=== PATIENT | female | born 1955 | race Caucasian/White ===

== ENCOUNTER 2017-09-07 11:01 | Emergency (ER) | payer OTHER ==
[2017-09-07 11:32] LABS: BASOPHILS # (AUTO) 0.1 10^3/uL (0.0-0.1); BASOPHILS % (AUTO) 0.6 %; EOSINOPHILS # (AUTO) 0.1 10^3/uL (0.0-0.7); EOSINOPHILS % (AUTO) 1.2 %; HCT - HEMATOCRIT 42.8 % (37.0-47.0); HGB - HEMOGLOBIN 14.7 g/dL (12.0-16.0); LYMPHOCYTES % (AUTO) 24.4 %; MEAN CORPUSCULAR HEMOGLOBIN 29.5 pg (27.0-31.0); MEAN CORPUSCULAR HGB CONC 34.3 g/dL (32.0-36.0); MEAN PLATELET VOLUME 7.2 fL (7.9-10.8); MONOCYTES # (AUTO) 0.6 10^3/uL (0.0-1.0); MONOCYTES % (AUTO) 7.1 %; NEUTROPHILS # (AUTO) 5.5 10^3/uL (1.5-6.6); NEUTROPHILS % (AUTO) 66.7 %; RED BLOOD COUNT 4.98 10^6/uL (4.20-5.40); RED CELL DISTRIBUTION WIDTH 12.4 % (12.0-15.0); UNCORRECTED WHITE BLOOD COUNT 8.2 x10^3/uL; WHITE BLOOD COUNT 8.2 x10^3/uL (4.8-10.8)
[2017-09-07 11:44] LABS: ALBUMIN/GLOBULIN RATIO 1.5 (1.0-2.2); BILIRUBIN,TOTAL 0.5 mg/dL (0.2-1.0); CALCIUM 9.9 mg/dL (8.5-10.3); CREATININE 0.5 mg/dL (0.4-1.0); POTASSIUM 3.7 mmol/L (3.5-5.0); TOTAL PROTEIN 7.9 g/dL (6.7-8.2)
--- NOTE | 2017-09-07 11:47 | ED Physician Documentation ---
History of Present Illness - Stated complaint Stated Complaint: DIZZY, FAST HR - Chief complaint Chief Complaint: Cardiac - History obtained from History obtained from: Patient, Family - History of Present Illness Timing: Enter time (129) - Additonal information Additional information: 62-year-old female with a remote history of diverticulitis with abscess formation has developed a headache at 01 30 this morning that awoken her from sleep and was severe. She became nauseous diaphoretic and tachycardic associated with his headache. She felt that her blood pressure was markedly elevated. She did not check her blood pressure or pulse. She was eventually able to get back to sleep and when she awoke this morning she continued to have some dizziness and she went into go see her primary care doctor. She was sent to get blood work and she was asked to come to the emergency department if she developed dizziness in route to the hospital. The patient did develop the dizziness and has come to the emergency department Review of Systems Constitutional: reports: Myalgias, Fatigue. denies: Fever, Chills Ears: denies: Ear pain Nose: denies: Rhinorrhea / runny nose, Congestion Throat: denies: Dental pain / toothache, Sore throat Cardiac: reports: Palpitations. denies: Chest pain / pressure, Pedal edema, Calf pain Respiratory: reports: Dyspnea, Cough. denies: Wheezing GI: denies: Abdominal Pain, Nausea, Vomiting : denies: Dysuria, Frequency PD PAST MEDICAL HISTORY - Past Medical History GI: Diverticulitis - Present Medications Home Medications: Ambulatory Orders Medication Instructions Recorded Confirmed Estrogens,Conj.,Synthetic A 0.3 mg PO 05/26/13 05/26/13 [Cenestin] Hydromorphone HCl 2 mg PO Q4-6H PRN 05/26/13 05/26/13 Levofloxacin 750 mg PO DAILY 05/26/13 05/26/13 Metronidazole 500 mg PO TID 05/26/13 05/26/13 - Allergies Allergies/Adverse Reactions: Allergies Allergy/AdvReac Type Severity Reaction Status Date / Time Tetracyclines Allergy Dizziness Verified 05/26/13 08:27 - Social History Does the pt smoke?: No Smoking Status: Never smoker Does the pt drink ETOH?: Yes Does the pt have substance abuse?: No - POLST Patient has POLST: No PD ED PE NORMAL - Vitals Vital signs reviewed: Yes (tachy and hypertensive) - General General: No acute distress, Well developed/nourished - HEENT HEENT: Atraumatic, PERRL, EOMI, Ears normal, Moist mucous membranes, Pharynx benign, Dentition benign - Neck Neck: Supple, no meningeal sign, No bony TTP - Cardiac Cardiac: No murmur, Other (tachy with loud second sound ) - Respiratory Respiratory: No respiratory distress, Clear bilaterally - Abdomen Abdomen: Soft, Non tender - Back Back: No CVA TTP, No spinal TTP - Derm Derm: Normal color, Warm and dry, No rash - Extremities Extremities: No deformity, No edema - Neuro Neuro: No motor deficit, No sensory deficit - Psych Psych: Normal mood, Normal affect Results - Vitals Vitals: Vital Signs - 24 hr 09/07/17 09/07/17 09/07/17 11:05 11:30 13:03 Temperature 36.2 C L 36.8 C Heart Rate 118 H 118 H 99 Respiratory 20 16 12 Rate Blood Pressure 162/95 H 187/94 H 169/73 H O2 Saturation 100 97 98 09/07/17 09/07/17 09/07/17 13:41 14:20 14:21 Temperature Heart Rate 93 93 109 H Respiratory 14 15 15 Rate Blood Pressure 168/72 H 164/86 H 182/90 H O2 Saturation 100 99 99 09/07/17 09/07/17 15:55 16:03 Temperature 36.6 C Heart Rate 98 97 Respiratory 21 16 Rate Blood Pressure 174/84 H 160/70 H O2 Saturation 95 98 Oxygen O2 Source Room air - EKG (time done) 1114 Rate: Rate (enter#) (112) Rhythm: Sinus tachycardia, LAE QRS: Low voltage Ischemia: Q waves (inferior) Compare to prior EKG: Old EKG unavailable Computer interpretation: Agree with computer - Labs Labs: Laboratory Tests 09/07/17 09/07/17 09/07/17 11:25 11:25 11:25 WBC 8.2 RBC 4.98 Hgb 14.7 Hct 42.8 MCV 86.0 MCH 29.5 MCHC 34.3 RDW 12.4 Plt Count 288 MPV 7.2 L Neut # 5.5 Lymph # 2.0 [place] # 0.6 Eos # 0.1 Baso # 0.1 Absolute Nucleated RBC 0.00 Nucleated RBC % 0.0 D-Dimer Sodium 137 Potassium 3.7 Chloride 102 Carbon Dioxide 22 Anion Gap 13.0 BUN 11 Creatinine 0.5 Estimated GFR (MDRD) 125 Glucose 109 H Calcium 9.9 Total Bilirubin 0.5 AST 28 ALT 28 Alkaline Phosphatase 121 Troponin I < 0.04 Total Protein 7.9 Albumin 4.8 Globulin 3.1 Albumin/Globulin Ratio 1.5 Lipase 45 Urine Color Urine Clarity Urine pH Ur Specific [place] Urine Protein Urine Glucose (UA) Urine Ketones Urine Occult Blood Urine Nitrite Urine Bilirubin Urine Urobilinogen Ur Leukocyte Esterase Ur Microscopic Review Urine Culture Comments 09/07/17 09/07/17 11:25 12:00 WBC RBC Hgb Hct MCV MCH MCHC RDW Plt Count MPV Neut # Lymph # [place] # Eos # Baso # Absolute Nucleated RBC Nucleated RBC % D-Dimer < 200.0 L Sodium Potassium Chloride Carbon Dioxide Anion Gap BUN Creatinine Estimated GFR (MDRD) Glucose Calcium Total Bilirubin AST ALT Alkaline Phosphatase Troponin I Total Protein Albumin Globulin Albumin/Globulin Ratio Lipase Urine Color YELLOW Urine Clarity CLEAR Urine pH 6.0 Ur Specific [place] <=1.005 Urine Protein NEGATIVE Urine Glucose (UA) NEGATIVE Urine Ketones NEGATIVE Urine Occult Blood NEGATIVE Urine Nitrite NEGATIVE Urine Bilirubin NEGATIVE Urine Urobilinogen 0.2 (NORMAL) Ur Leukocyte Esterase NEGATIVE Ur Microscopic Review NOT INDICATED Urine Culture Comments NOT INDICATED - Rads (name of study) 2 veiw chest Radiology: Prelim report reviewed (Impression: No consolidation evident.), EMP read indepedently, See rad report Procedures - IVC sono (time) 1140 Bedside IVC sono: IVC measures (cm) (0.92), IVC collapsed c insp (cm) (complete) , Dehydration 1530 Bedside IVC sono: IVC measures (cm) (1.56), IVC collapsed c insp (cm) (1.24), Euvolemia PD MEDICAL DECISION MAKING - ED course Complexity details: reviewed old records, reviewed results, re-evaluated patient , considered differential, d/w patient, d/w family ED course: 62-year-old female with a concerning onset of severe headache and tachycardia with diaphoresis in the middle of the night has had improvement in her symptoms but continues to have some mild dizziness. She is found to be dehydrated on interrogation of the inferior vena cava. Her heart rate is in the 120 range and she is dehydrated. IV is established and she is given IV saline and we will check her troponin. Her electrocardiogram is concerning for some Q waves in the inferior leads. Troponin and d-dimer are negative the patient's blood work is otherwise unremarkable and she is able to orally hydrate. We were not able to establish an IV. Following hydration the patient's inferior vena cava is interrogated again showing normal indices for hydration. The patient is symptom-free. 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 This is the only risk for her being dehydrated we have come up with. The patient does have some exertional dyspnea which has been progressive and I have recommended she have an exercise treadmill test done as soon as possible. She also has some hypertension which has been untreated and all values here today were in an elevated range and I have asked her to repeat blood pressure measurements in an appropriate setting. I have asked her to follow-up with her primary care doctor regarding her blood pressure and treatment. Departure - Departure Disposition: 01 Home, Self Care Clinical Impression: Dehydration Hypertension Qualifiers: Hypertension type: unspecified Qualified Code(s): I10 - Essential (primary) hypertension Instructions: ED Dehydration, ED Hypertension Poss Follow-Up: Jannet Botello PA-C [Primary Care Provider] - Comments: Today in the Emergency Department your blood pressure was elevated. This can happen from the stress of the visit itself, from a current illness or circumstance or from uncontrolled hypertension. If you take blood pressure medications take your usual mediations, have your blood pressure re-checked in an appropriate setting and follow up any elevation with your primary care doctor. Today the symptom of exertional dyspnea that you were having is concerning for a possible problem with your heart. Follow-up with your primary care doctor about obtaining an exercise treadmill test. Discharge Date/Time: 09/07/17 16:04
[2017-09-07] MEDS ORDERED: SODIUM CHLORIDE 0.9% 1,000 ML IV ONE (11:53)
--- NOTE | 2017-09-07 12:17 | XRAY Preliminary Report ---
Exam: XR CHEST 2 VIEW PA/LAT IMPRESSION: No consolidation evident. [facility] SITE ID: [id number]
--- NOTE | 2017-09-07 12:19 | XRAY Report ---
EXAM: CHEST RADIOGRAPHY EXAM DATE: 09/07/2017 12:05 PM. CLINICAL HISTORY: Cough dyspnea tachy. High blood pressure. COMPARISON: 02/15/2010 chest x-ray. TECHNIQUE: 2 views. FINDINGS: Lungs/Pleura: No focal consolidation evident. No pleural effusion. No pneumothorax. Normal volumes. Mediastinum: Heart and mediastinal contours are unremarkable. Other: Stable medial left apical density superimposed on posteromedial left third rib. Possible bone island or calcified granuloma. IMPRESSION: No consolidation evident. [facility] Referring Provider Line: [phone] SITE ID: [id number]
[2017-09-07 12:59] LABS: BILIRUBIN,URINE NEGATIVE (NEGATIVE)
[2017-09-07 13:02] LABS: UA CHARGE (STRIP ONLY) YES; UR CULTURE IF IND NOT INDICATED
[2017-09-07 16:04] VITALS: BP 160/70
== END 2017-09-07 16:04 | disposition home or self-care (01) ==
LOC: ED 11:01
DX: E86.0 Dehydration (principal); I10 Essential (primary) hypertension; Z87.19 Personal history of other diseases of the digestive system
CPT/HCPCS: 36415; 71020; 80053; 81001; 81003; 83690; 84484; 85025; 85379; 87086; 93005; 99284

== ENCOUNTER 2017-12-02 06:55 | Observation (INO) | payer OTHER ==
[2017-12-02] MEDS ORDERED: SODIUM CHLORIDE 0.9% 1,000 ML IV ONE ×2 (07:09→07:26)
--- NOTE | 2017-12-02 07:32 | ED Physician Documentation ---
History of Present Illness - Stated complaint Stated Complaint: RAPID HEART RATE - Chief complaint Chief Complaint: Cardiac - Additonal information Additional information: hx from pt very nice normally healthy 62 f only pmhx is HTN and she take metoprolol ER each day at 7 AM last week she was ill with a bad cough and body aches but that has improved somewhat now she was OK yesterday she awoke at 2AM with rapid palp and using her home BP cuff she determined her HR was 166 and regular and her SBP was 103 she drank a lot of fluids and her HR slowed to 130s and her BP improved but about 4 AM she developed chest tightness on the left side rad to her back of waxing and waning fairly severe at times no leg pain or swelling, no recent travel no NVD no bloody BMs has not taken her dayquil or nyquil for several days she had echinacae and chamomile tea last night but she has had those before s rxn she had an episode of tachycardia last fall and was subsequently referred to cardio and states she had an echo and stress echo and both were normal Review of Systems Constitutional: reports: Myalgias. denies: Fever, Chills Cardiac: reports: Chest pain / pressure, Palpitations Respiratory: reports: Cough GI: denies: Abdominal Pain, Nausea, Vomiting, Diarrhea, Bloody / black stool : denies: Dysuria Neurologic: denies: Generalized weakness Endocrine: denies: Easy bruising / bleeding Immunocompromised: denies: Immunocompromised PD PAST MEDICAL HISTORY - Past Medical History Past Medical History: Yes GI: Diverticulitis - Past Surgical History Past Surgical History: Yes - Present Medications Home Medications: Ambulatory Orders Medication Instructions Recorded Confirmed Metoprolol Succinate [Toprol Xl] 37.5 mg PO DAILY 12/02/17 12/02/17 - Allergies Allergies/Adverse Reactions: Allergies Allergy/AdvReac Type Severity Reaction Status Date / Time Tetracyclines Allergy Dizziness Verified 12/02/17 07:05 - Social History Does the pt smoke?: No Smoking Status: Never smoker Does the pt drink ETOH?: Yes Does the pt have substance abuse?: No - Immunizations Immunizations are current?: Yes - POLST Patient has POLST: No PD ED PE NORMAL - Vitals Vital signs reviewed: Yes - General General: Alert and oriented X 3 - HEENT HEENT: PERRL - Neck Neck: Supple, no meningeal sign - Cardiac Cardiac: RRR (tachy no mrumur) - Respiratory Respiratory: No respiratory distress, Clear bilaterally - Abdomen Abdomen: Soft, Non tender - Derm Derm: Normal color - Extremities Extremities: No deformity, No edema, No calf tenderness / cord - Neuro Neuro: Alert and oriented X 3 Results - Vitals Vitals: Vital Signs - 24 hr 12/02/17 12/02/17 12/02/17 07:00 07:35 09:10 Temperature 36.4 C L Heart Rate 122 H 106 H Respiratory 18 18 Rate Blood Pressure 159/78 H 121/73 Blood Pressure 142/67 H [Left] Blood Pressure 146/68 H [Right] O2 Saturation 100 99 12/02/17 10:46 Temperature Heart Rate 88 Respiratory 15 Rate Blood Pressure 112/65 Blood Pressure [Left] Blood Pressure [Right] O2 Saturation 99 Oxygen O2 Source Room air - EKG (time done) 0704 Rate: Rate (enter#) (115) Rhythm: Sinus tachycardia [place]: Normal Intervals: Normal [place] Ischemia: Normal ST segments Other comments: Other comments (no delta wave) - Labs Labs: Laboratory Tests 12/02/17 12/02/17 12/02/17 07:35 07:35 07:35 WBC 10.3 RBC 4.30 Hgb 12.9 Hct 37.4 MCV 87.2 MCH 30.1 MCHC 34.6 RDW 12.3 Plt Count 365 MPV 7.1 L Neut # 7.2 H Lymph # 1.9 [place] # 1.1 H Eos # 0.1 Baso # 0.1 Absolute Nucleated RBC 0.00 Nucleated RBC % 0.0 D-Dimer Sodium 133 L Potassium 3.5 Chloride 99 L Carbon Dioxide 22 Anion Gap 12.0 BUN 9 Creatinine 0.5 Estimated GFR (MDRD) 125 Glucose 112 H Lactic Acid Calcium 8.8 Total Bilirubin 0.7 AST 19 ALT 15 Alkaline Phosphatase 94 Troponin I < 0.04 Total Protein 7.0 Albumin 3.6 Globulin 3.4 Albumin/Globulin Ratio 1.1 Lipase 21 L TSH Urine Color Urine Clarity Urine pH Ur Specific [place] Urine Protein Urine Glucose (UA) Urine Ketones Urine Occult Blood Urine Nitrite Urine Bilirubin Urine Urobilinogen Ur Leukocyte Esterase Ur Microscopic Review Urine Culture Comments Influenza A (Rapid) Influenza B (Rapid) Influenza Types A,B Ag 12/02/17 12/02/17 12/02/17 07:35 07:35 08:15 WBC RBC Hgb Hct MCV MCH MCHC RDW Plt Count MPV Neut # Lymph # [place] # Eos # Baso # Absolute Nucleated RBC Nucleated RBC % D-Dimer 240.6 Sodium Potassium Chloride Carbon Dioxide Anion Gap BUN Creatinine Estimated GFR (MDRD) Glucose Lactic Acid 1.1 Calcium Total Bilirubin AST ALT Alkaline Phosphatase Troponin I Total Protein Albumin Globulin Albumin/Globulin Ratio Lipase TSH 3.97 Urine Color Urine Clarity Urine pH Ur Specific [place] Urine Protein Urine Glucose (UA) Urine Ketones Urine Occult Blood Urine Nitrite Urine Bilirubin Urine Urobilinogen Ur Leukocyte Esterase Ur Microscopic Review Urine Culture Comments Influenza A (Rapid) Influenza B (Rapid) Influenza Types A,B Ag 12/02/17 12/02/17 08:50 09:46 WBC RBC Hgb Hct MCV MCH MCHC RDW Plt Count MPV Neut # Lymph # [place] # Eos # Baso # Absolute Nucleated RBC Nucleated RBC % D-Dimer Sodium Potassium Chloride Carbon Dioxide Anion Gap BUN Creatinine Estimated GFR (MDRD) Glucose Lactic Acid Calcium Total Bilirubin AST ALT Alkaline Phosphatase Troponin I Total Protein Albumin Globulin Albumin/Globulin Ratio Lipase TSH Urine Color YELLOW Urine Clarity CLEAR Urine pH 6.0 Ur Specific [place] 1.010 Urine Protein NEGATIVE Urine Glucose (UA) NEGATIVE Urine Ketones >=80 H Urine Occult Blood NEGATIVE Urine Nitrite NEGATIVE Urine Bilirubin NEGATIVE Urine Urobilinogen 0.2 (NORMAL) Ur Leukocyte Esterase NEGATIVE Ur Microscopic Review NOT INDICATED Urine Culture Comments NOT INDICATED Influenza A (Rapid) Negative Influenza B (Rapid) Negative Influenza Types A,B Ag - - Rads (name of study) CXR Radiology: See rad report (NACPD) CTPA Radiology: See rad report (no PE no dissection, no aneurysm, no pna, numerous small nodes that appear reactive and not pathalogic, edema upper abd seperate from aorta and pancreas unclear etiology) PD MEDICAL DECISION MAKING - ED course ED course: tachycardia and hypotension at 6 Am and CP developed at 4 Am improved with nitro in ER EKG no acute ischemia and trop # 1 neg CTAP neg for PE dissection etc, notable for small nodes and some upper abd edema of unclear etiology and doubtful related to pt sx today merits serial CE to r/out alexander given tachy and hypotension earlier pt states she recently had echo and stress echo so called her cardio office but they have no record of same pt verbally advised of need for fup re nodules and abd edema Departure - Departure Disposition: ED Place in Observation Clinical Impression: Tachycardia Chest pain Qualifiers: Chest pain type: unspecified Qualified Code(s): R07.9 - Chest pain, unspecified Dyspnea Qualifiers: Dyspnea type: unspecified Qualified Code(s): R06.00 - Dyspnea, unspecified Hypotension Qualifiers: Hypotension type: unspecified hypotension type Qualified Code(s): I95.9 - Hypotension, unspecified Condition: Good Comments: The CT scan of your chest shows some small reactive lymph nodes in your chest and some small nodules in your lung and some edema in you abdominal cavity - I don't think any of these findings explain your symptoms today but please follow up with your PMD for a repeat chest xray in about 6 [address] perhaps another [address] scan or ultrasound of you abdomen in a few months
[2017-12-02 07:51] LABS: BASOPHILS # (AUTO) 0.1 10^3/uL (0.0-0.1); BASOPHILS % (AUTO) 0.9 %; EOSINOPHILS # (AUTO) 0.1 10^3/uL (0.0-0.7); EOSINOPHILS % (AUTO) 1.2 %; HGB - HEMOGLOBIN 12.9 g/dL (12.0-16.0); LYMPHOCYTES # (AUTO) 1.9 10^3/uL (1.5-3.5); LYMPHOCYTES % (AUTO) 18.1 %; MEAN CORPUSCULAR HEMOGLOBIN 30.1 pg (27.0-31.0); MEAN CORPUSCULAR HGB CONC 34.6 g/dL (32.0-36.0); MEAN CORPUSCULAR VOLUME 87.2 fL (81.0-99.0); MEAN PLATELET VOLUME 7.1 fL (7.9-10.8); MONOCYTES # (AUTO) 1.1 10^3/uL (0.0-1.0); MONOCYTES % (AUTO) 10.3 %; NEUTROPHILS # (AUTO) 7.2 10^3/uL (1.5-6.6); NEUTROPHILS % (AUTO) 69.5 %; PLT - PLATELET COUNT 365 10^3/uL (130-450); RED CELL DISTRIBUTION WIDTH 12.3 % (12.0-15.0); WHITE BLOOD COUNT 10.3 x10^3/uL (4.8-10.8)
[2017-12-02] MEDS ORDERED: NITROGLYCERIN SL 0.4 MG TABLET SL STA (07:56)
[2017-12-02 08:04] LABS: ALBUMIN 3.6 g/dL (3.2-5.5); ALBUMIN/GLOBULIN RATIO 1.1 (1.0-2.2); BILIRUBIN,TOTAL 0.7 mg/dL (0.2-1.0); CALCIUM 8.8 mg/dL (8.5-10.3); CREATININE 0.5 mg/dL (0.4-1.0)
--- NOTE | 2017-12-02 08:31 | XRAY Report ---
EXAM: CHEST RADIOGRAPHY EXAM DATE: 12/02/2017 08:01 AM. CLINICAL HISTORY: Chest pain. Tachycardia. Hypotensive. Left chest pain. COMPARISON: 09/07/2017. TECHNIQUE: 2 views. FINDINGS: Lungs/Pleura: No consolidation. No vascular congestion. No pneumothorax. No parenchymal cavities. Mediastinum: Heart size is normal. Aorta is mildly tortuous. Other: Degenerative changes of the thoracic spine and both shoulders. IMPRESSION: 1. No acute disease in the chest. [facility] Referring Provider Line: [phone] SITE ID: [id number]
[2017-12-02] MEDS ORDERED: IOPAMIDOL-300 100 ML VIAL ONE (08:57)
[2017-12-02] MEDS ORDERED: IOPAMIDOL-300 100 ML VIAL IVP ONE (09:16)
--- NOTE | 2017-12-02 09:34 | CT Preliminary Report ---
Exam: CT CHEST ANGIO (PE) IMPRESSION: 1. No evidence of pulmonary embolus, aortic aneurysm or aortic dissection. 2. Bilateral upper lobe parenchymal scarring and mild subpleural reticulation. No areas of dense cons olidation. No pneumothorax. 3. Numerous subcentimeter mediastinal and hilar lymph nodes. 4. Normal heart size. Mild degree of coronary artery calcified plaque. 5. Focal edema in the upper abdomen anterior and separate of the proximal abdominal aorta and posteri or to the pancreas although of uncertain etiology or origin. Normal caliber proximal aorta and celiac artery and SMA which are widely patent. [facility] SITE ID: [id number]
--- NOTE | 2017-12-02 10:03 | CT Report ---
EXAM: CT ANGIOGRAM CHEST EXAM DATE: 12/02/2017 09:16 AM. CLINICAL HISTORY: Chest pain. Shortness of air. Tachycardia. Hypotension. COMPARISON: 09/07/2017. 12/02/2017. TECHNIQUE: Routine helical imaging was performed through the chest in the pulmonary arterial phase. I V Contrast: 80 mL of Isovue-370. Reconstructions: Coronal 3-D MIP reconstructions.Sagittal and holley l. In accordance with CT protocol optimization, one or more of the following dose reduction techniques w ere utilized for this exam: automated exposure control, adjustment of mA and/or KV based on patient s ize, or use of iterative reconstructive technique. FINDINGS: Pulmonary Arteries: Diagnostic quality: Adequate through the segmental arteries. No evidence for acute or chronic pulmona ry emboli. Lungs/Pleura: No endobronchial obstruction. No areas of dense consolidation. No pneumothorax. Mild la rgely asymmetric subpleural reticulation and parenchyma scarring in both upper lobes, right greater t pacheco left. There is mild lower lobe bronchial dilatation noted. No vascular congestion. No pleural eff usions. No pneumothorax. Subpleural 2 mm nodule left upper lobe, image 76 series 4. There is a 1 mm n odule left lower lobe, image 72 series 4. Mediastinum: Visualized thyroid gland is unremarkable. Mild degree of coronary artery calcified plaqu e. Subcentimeter paratracheal, mediastinal lymph nodes are seen. Subcentimeter hilar lymph nodes are noted. Heart size is normal. Small pericardial effusion. Small hiatal hernia. No mediastinal hematom a. Thoracic Aorta: No thoracic aneurysm. Maximal size of the mid ascending aorta measures 3.1 cm. No def initive dissection is noted. Upper Abdomen: Included portions of the liver, spleen, adrenals, pancreas and kidneys are unremarkabl e. There is edema along the proximal abdominal aorta, although largely along the margins of the anne c artery and posterior and cephalad to the pancreas and anterior to the proximal dominant. The visual ized abdominal aorta is normal in caliber. Other: Degenerative changes of the thoracic spine and both shoulders. No acute osseous abnormalities. IMPRESSION: 1. No evidence of pulmonary embolus, aortic aneurysm or aortic dissection. 2. Bilateral upper lobe parenchymal scarring and mild subpleural reticulation. No areas of dense cons olidation. No pneumothorax. 3. Numerous subcentimeter mediastinal and hilar lymph nodes. 4. Normal heart size. Mild degree of coronary artery calcified plaque. 5. Focal edema in the upper abdomen anterior and separate of the proximal abdominal aorta and posteri or to the pancreas, although of uncertain etiology or origin. Normal caliber proximal aorta and anne c artery and SMA, which are widely patent. [facility] Referring Provider Line: [phone] SITE ID: [id number]
[2017-12-02 10:21] LABS: BILIRUBIN,URINE NEGATIVE (NEGATIVE); GLUCOSE, URINE (UA) NEGATIVE (NEGATIVE); KETONES,URINE (UA) >=80 mg/dL (NEGATIVE); LEUKOCYTE ESTERASE, URINE NEGATIVE (NEGATIVE); NITRITE,URINE NEGATIVE (NEGATIVE); OCCULT BLOOD,URINE NEGATIVE (NEGATIVE); PROTEIN,URINE NEGATIVE (NEGATIVE); UROBILINOGEN,URINE 0.2 (NORMAL) E.U./dL (NORMAL)
[2017-12-02 10:26] LABS: CLARITY,URINE CLEAR (CLEAR)
[2017-12-02] MEDS ORDERED: SODIUM CHLORIDE FLUSH 0.9% 10 ML SYRINGE IVP PRN (10:47)
[2017-12-02] MEDS ORDERED: ONDANSETRON ODT 4 MG TABLET TL PRN (10:47)
[2017-12-02] MEDS ORDERED: TEMAZEPAM 15 MG CAPSULE PO PRN (10:47)
[2017-12-02] MEDS ORDERED: NITROGLYCERIN SL 0.4 MG TABLET SL PRN (11:53)
[2017-12-02] MEDS ORDERED: HYDROcod/ACETAM 5/325 MG TABLET PO PRN (11:55)
[2017-12-02] MEDS ORDERED: CYCLOBENZAPRINE 10 MG TABLET PO PRN (11:55)
[2017-12-02] MEDS: PANTOPRAZOLE 40 MG TABLET PO SCH (12:41)
[2017-12-02] MEDS: SODIUM CHLORIDE FLUSH 0.9% 10 ML SYRINGE IVP SCH ×2 (12:41→21:06)
[2017-12-02] MEDS: ACETAMINOPHEN 325 MG TABLET PO PRN (13:12)
[2017-12-02] MEDS: SODIUM CHLORIDE 0.9% 1,000 ML IV SCH ×2 (14:30→21:23)
--- NOTE | 2017-12-02 16:45 | HISTORY & PHYSICAL EXAMINATION ---
Chief Complaint - Chief Complaint Chief Complaint: chest pain, palpitations History of Present Illness - Admitted From Admitted From:: ED - History Obtained From Records Reviewed: yes History obtained from: patient Exam Limitations: none - History of Present Illness HPI Comment/Other: Lori García is a 62 year old female with a past medical history of HTN, diverticulitis, fall with a concussion ~2years ago, and bowel resection related to diverticulitis. She came to the ED today after waking up feeling thirsty, having palpitations, and having left posterior torso discomfort. Associated symptoms included feeling becoming hot, and feeling anxious. A similar episode occurred a few weeks ago, at which time she underwent a cardiac echo-stress test which was negative. She has since been seeing Dr. Bhatti, Cardiology. First few troponinis are negative. Patient also notes some "pleuritic" chest discomfort on left low torso that wraps around spine and ends at mid-line. She has muscle relaxers on home med list, which I will resume and give lidocaine patch. Patient will be monitored on telemetry overnight to watch for tachycardia or ectopy. 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 Living arrangement: At home Living Situation: With spouse/s.o. - Substance History Use: Uses substance without health or social issues: NONE Abuse: Recurrent use of substance despite neg consequences: NONE Dependence: Experiences withdrawal or developed tolerances: NONE - POLST Patient has POLST: No POLST Status: Full Code Meds/Allgy - Home Medications Home Medications: Ambulatory Orders Medication Instructions Recorded Confirmed Cyclobenzaprine [Flexeril] 10 mg PO TID PRN 12/02/17 12/02/17 HYDROcod/ACETAM 5/325 [[place] 5/325] 1 tab PO TID PRN 12/02/17 12/02/17 Metoprolol Succinate [Toprol Xl] 37.5 mg PO DAILY 12/02/17 12/02/17 - Allergies Allergies/Adverse Reactions: Allergies Allergy/AdvReac Type Severity Reaction Status Date / Time Tetracyclines Allergy Dizziness Verified 12/02/17 07:05 Review of Systems - Constitutional Constitutional: reports: Fatigue, Chills, Weakness - Eyes Eyes: reports: Vision loss - Respiratory Respiratory: reports: Cough, Pleuritic pain (left), Other (upper respiratory virus-resolving.) - Gastrointestinal Gastrointestinal: reports: Reflux/heartburn - Neurological Neurological: reports: General weakness, Headache, Dizziness - Psychiatric Psychiatric: reports: Anxiety - All Other Systems All Other Systems: reports: Reviewed and negative Exam - Vital Signs Reviewed Vital Signs: Yes Vital Signs: Vital Signs x48h Temp Pulse Pulse Resp BP BP Pulse Ox 12/02/17 16:21 36.7 C 80 13 137/71 H 98 12/02/17 13:12 37.1 C 86 14 140/81 H 97 12/02/17 12:22 74 16 122/65 98 - Physical Exam General Appearance: positive: No acute distress, Alert Eyes Bilateral: positive: Normal inspection, PERRL ENT: positive: ENT inspection nml, Pharynx nml, No signs of dehydration Neck: positive: Nml inspection, Thyroid nml, No JVD, Trachea midline Respiratory: positive: Chest non-tender, No respiratory distress, Breath sounds nml Cardiovascular: positive: Regular rate & rhythm, No murmur, No gallop, Tachycardia Peripheral Pulses: positive: 2+ Abdomen: positive: Non-tender, No organomegaly, Nml bowel sounds, No distention Back: positive: Nml inspection Skin: positive: Color nml, No rash, Warm, Dry Extremities: positive: Non-tender, Full ROM, Nml appearance, No pedal edema Neurologic/Psychiatric: positive: Oriented x3, CN's nml (2-12), Motor nml, Sensation nml, Mood/affect nml Reflexes: Bicep (R): 4+, Bicep (L): 4+ Conclusion/Plan - Problem List (1) Chest pain Conclusion/Plan: Patient was admitted with a primary complaint of chest pain that is primarily noted on left low torso that wraps around to her spine. She believes this is a "muscular" type pain. This is likely not related to new lung nodules, but may be related to fluid noted near diaphragm/liver. Plan: Lidocaine patch and flexeril as needed. Heating pads. Qualifiers: Chest pain type: unspecified Qualified Code(s): R07.9 - Chest pain, unspecified (2) Hyponatremia Conclusion/Plan: Mildly decreased sodium at 133 today, without any other known history of this. Plan: Replace using NS overnight. (3) Dyspnea Conclusion/Plan: This was a complaint at home, but patient no longer feeling this symptom. Plan: Provide O2 if needed, monitor VS. Qualifiers: Dyspnea type: unspecified Qualified Code(s): R06.00 - Dyspnea, unspecified (4) Tachycardia Conclusion/Plan: During exam, patient continued to display heart rates 80-110. Patient denies palpitations, but could feel this while at home prior to coming to the ED. Plan: Monitor on telemetry. Give medication for rate control if fluids to not correct this problem. (6) Hypertension Conclusion/Plan: Blood pressure 131/70's. Plan: Monitor blood pressure and watch for hypotension. Qualifiers: Hypertension type: essential hypertension Qualified Code(s): I10 - Essential (primary) hypertension - Lab Results Lab results reviewed: Yes Fish Bones: 12/03/17 05:10 12/03/17 05:10 - Diagnostic Imaging Results Diagnostic Imaging Results: positive: Prelim report reviewed, Final report reviewed Diagnostic Imaging Results Comments: FINDINGS: Pulmonary Arteries: Diagnostic quality: Adequate through the segmental arteries. No evidence for acute or chronic pulmonary emboli. Lungs/Pleura: No endobronchial obstruction. No areas of dense consolidation. No pneumothorax. Mild largely asymmetric subpleural reticulation and parenchyma scarring in both upper lobes, right greater than left. There is mild lower lobe bronchial dilatation noted. No vascular congestion. No pleural effusions. No pneumothorax. Subpleural 2 mm nodule left upper lobe, image 76 series 4. There is a 1 mm nodule left lower lobe, image 72 series 4. Mediastinum: Visualized thyroid gland is unremarkable. Mild degree of coronary artery calcified plaque. Subcentimeter paratracheal, mediastinal lymph nodes are seen. Subcentimeter hilar lymph nodes are noted. Heart size is normal. Small pericardial effusion. Small hiatal hernia. No mediastinal hematoma. Thoracic Aorta: No thoracic aneurysm. Maximal size of the mid ascending aorta measures 3.1 cm. No definitive dissection is noted. Upper Abdomen: Included portions of the liver, spleen, adrenals, pancreas and kidneys are unremarkable. There is edema along the proximal abdominal aorta, although largely along the margins of the celiac artery and posterior and cephalad to the pancreas and anterior to the proximal dominant. The visualized abdominal aorta is normal in caliber. Other: Degenerative changes of the thoracic spine and both shoulders. No acute osseous abnormalities. IMPRESSION: 1. No evidence of pulmonary embolus, aortic aneurysm or aortic dissection. 2. Bilateral upper lobe parenchymal scarring and mild subpleural reticulation. No areas of dense consolidation. No pneumothorax. 3. Numerous subcentimeter mediastinal and hilar lymph nodes. 4. Normal heart size. Mild degree of coronary artery calcified plaque. 5. Focal edema in the upper abdomen anterior and separate of the proximal abdominal aorta and posterior to the pancreas, although of uncertain etiology or origin. Normal caliber proximal aorta and celiac artery and SMA, which are widely patent. [facility] Referring Provider Line: [phone] cc: Jannet Botello PA-C; Malka Carlin MD ADDENDUM ADDENDUM: 12/02/17 10:40 Impression: 5. In regards to the edema in the upper abdomen, with this appearance consider follow-up CT of the abdomen in 2-3 months for reassessment. 6. Left upper lobe and left lower lobe nodules largest measuring 2 mm. See recommendations below. In a low risk patient no further follow-up is warranted. In a high risk patient follow-up chest CT is recommended in 12 months. Recommend follow-up of the described nodule(s) according to the following guidelines: Fleischner Society Recommendations 2017 MacMahon et al. Radiology 2017 Solid Nodules-Low Risk Patients: <6 mm (single or multiple) - No routine follow- up* 6-8 mm (single) -CT 6-12 at months, then consider CT at 18-24 months 6-8mm (multiple) -CT 3-6 at mo, then consider at CT 18-24 months >8 mm (single) -Consider CT, PET/CT, or tissue sampling at 3 months >8 mm (multiple) -CT 3-6 at mo, then consider CT at 18-24 months Solid Nodules-High Risk Patients: <6 mm (single or multiple) -Optional CT at 12 months* 6-8 mm (single) -CT at 6-12 months, then CT at 18-24 months 6-8mm (multiple) -CT at 3-6 months, then CT at 18-24 months >8 mm (single) -Consider CT, PET/CT, or tissue sampling at 3 months >8 mm (multiple) -CT at 3-6 months, then at 18-24 months *Nodules < 6mm do not require routine follow-up, but suspicious nodule morphology, upper lobe location, or both may warrant 12 month follow-up Subsolid nodules: <6 mm (single, GG or part solid) -No routine follow-up >=6 mm (single GG) -CT at 6-12 months to confirm, then CT q2 years until 5 years >=6 mm (single part solid) -CT at 3-6 months to confirm, if unchanged and solid <6mm, annual CT for 5 years <6 mm (multiple GG or part solid) -CT at 3-6 months. If stable, consider CT at 2 and 4 years >=6 mm (multiple GG or part solid) -CT at 3-6 months. Subsequent management based on most suspicious nodule(s). Consider follow-up at 2 and 4 years for certain suspicious nodules <6mm. If solid component develops or growth, consider resection. - EKG Results EKG Interpreted Independently: Yes EKG Findings: ST
[2017-12-02] MEDS ORDERED: LIDOCAINE PATCH 5% TOP PRN (20:16)
[2017-12-03] MEDS: ACETAMINOPHEN 325 MG TABLET PO PRN (01:12)
[2017-12-03] MEDS: SODIUM CHLORIDE FLUSH 0.9% 10 ML SYRINGE IVP SCH (05:20)
[2017-12-03] MEDS: PANTOPRAZOLE 40 MG TABLET PO SCH (05:23)
[2017-12-03] MEDS: SODIUM CHLORIDE 0.9% 1,000 ML IV SCH (05:26)
[2017-12-03 05:34] LABS: BASOPHILS # (AUTO) 0.1 10^3/uL (0.0-0.1); BASOPHILS % (AUTO) 0.7 %; EOSINOPHILS # (AUTO) 0.2 10^3/uL (0.0-0.7); EOSINOPHILS % (AUTO) 2.4 %; HGB - HEMOGLOBIN 10.8 g/dL (12.0-16.0); LYMPHOCYTES # (AUTO) 2.1 10^3/uL (1.5-3.5); LYMPHOCYTES % (AUTO) 27.1 %; MEAN CORPUSCULAR HEMOGLOBIN 29.6 pg (27.0-31.0); MEAN CORPUSCULAR HGB CONC 33.8 g/dL (32.0-36.0); MEAN CORPUSCULAR VOLUME 87.5 fL (81.0-99.0); MONOCYTES # (AUTO) 0.9 10^3/uL (0.0-1.0); NEUTROPHILS # (AUTO) 4.5 10^3/uL (1.5-6.6); NEUTROPHILS % (AUTO) 57.8 %; PLT - PLATELET COUNT 332 10^3/uL (130-450); RED BLOOD COUNT 3.64 10^6/uL (4.20-5.40); RED CELL DISTRIBUTION WIDTH 12.5 % (12.0-15.0); WHITE BLOOD COUNT 7.7 x10^3/uL (4.8-10.8)
[2017-12-03 05:48] LABS: ALBUMIN 3.1 g/dL (3.2-5.5); ALBUMIN/GLOBULIN RATIO 1.2 (1.0-2.2); ALKALINE PHOSPHATASE 69 IU/L (42-121); ALT ALANINE AMINOTRANSFERASE 12 IU/L (10-60); AST ASPARTATE AMINOTRANSFERASE 14 IU/L (10-42); BILIRUBIN,TOTAL 0.3 mg/dL (0.2-1.0); BUN - BLOOD UREA NITROGEN < 5 mg/dL (6-20); CALCIUM 8.4 mg/dL (8.5-10.3); CARBON DIOXIDE - CO2 22 mmol/L (21-32); CHLORIDE 111 mmol/L (101-111); CREATININE 0.4 mg/dL (0.4-1.0); GFR - MDRD 162 (>89); GLUCOSE 98 mg/dL (70-100); MAGNESIUM 1.9 mg/dL (1.7-2.8); PHOSPHORUS 2.9 mg/dL (2.5-4.6); SODIUM 140 mmol/L (135-145); TOTAL PROTEIN 5.7 g/dL (6.7-8.2)
[2017-12-03] MEDS ORDERED: POTASSIUM CHLORIDE 10 MEQ CAPSULE PO ONE (08:12)
--- NOTE | 2017-12-03 08:48 | Discharge Plan ---
Discharge Plan Disposition: Home, Self Care Condition: Good Prescriptions: Lidocaine Patch 5% [Lidoderm Patch] 1 patch TOP DAILY PRN #5 patch PRN Reason: Pain Diet: Low Sodium Activity Restrictions: No Restrictions Shower Restrictions: No Driving Restrictions: No Weight Bearing: Full Weight Additional Instructions or Follow Up instructions: You came in with chest pain. All cardiac enzymes were negative and there were no impressive EKG changes other than tachycardia (fast heart rate). Your echocardiogram was normal. The pain you have on your left torso was treated with a lidocaine patch and a muscle relaxer. Notes from ED doctor: "The CT scan of your chest shows some small reactive lymph nodes in your chest and some small nodules in your lung and some edema in you abdominal cavity - I don't think any of these findings explain your symptoms today but please follow up with your PMD for a repeat chest xray in about 6 months and perhaps another CT scan or ultrasound of you abdomen in a few months", I will provide a copy of the results. I called Dr. Curtis's clinic this am to inform him of our inconclusive findings , and we will be faxing records to [phone] later today. Please see your PCP within a week. No Smoking: If you smoke, Please STOP! Call for help. Follow-up with: Jannet Botello PA-C [Primary Care Provider] -
[2017-12-03 08:51] VITALS: BP 121/54
[2017-12-03] MEDS ORDERED: POLYETHYLENE GLYCOL 3350 17 GM PACKET PO SCH (09:00)
[2017-12-03] MEDS ORDERED: METOPROLOL SUCCINATE 25 MG TABLET PO SCH (09:00)
[2017-12-03] MEDS ORDERED: ENOXAPARIN 40 MG/0.4 ML SYRINGE SUBQ SCH (09:00)
--- NOTE | 2017-12-03 09:18 | DISCHARGE SUMMARY ---
Discharge Summary Admit Date: 12/02/17 Discharge Date: 12/03/17 Discharging Provider: JOSI Garcia Primary Care Provider: Jannet Botello Code Status: Attempt Resuscitation Condition at Discharge: Good Discharge Disposition: 01 Home, Self Care - DIAGNOSES Admission Diagnoses: Chest pain, unspecified (R07.9) Dyspnea, unspecified (R06.00) Essential (primary) hypertension (I10) Discharge Diagnoses with Status of Each Condition: Dyspnea, unspecified (R06.00) Chest pain, unspecified (R07.9) Essential (primary) hypertension (I10) Solitary pulmonary nodule (R91.1) - HPI History of Present Illness: Lori García is a 62 year old female with a past medical history of HTN, diverticulitis, fall with a concussion ~2years ago, and bowel resection related to diverticulitis. She came to the ED today after waking up feeling thirsty, having palpitations, and having left posterior torso discomfort. Associated symptoms included feeling becoming hot, and feeling anxious. A similar episode occurred a few weeks ago, at which time she underwent a cardiac echo-stress test which was negative. She has since been seeing Dr. Bhatti, Cardiology. First few troponinis are negative. Patient also notes some "pleuritic" chest discomfort on left low torso that wraps around spine and ends at mid-line. She has muscle relaxers on home med list, which I will resume and give lidocaine patch. Patient will be monitored on telemetry overnight to watch for tachycardia or ectopy. - HOSPITAL COURSE Hospital Course: Lori was given IVF over night with a resolution of her primary complaint of left chest pain/torso pain, palpitations, and being thirsty. An echocardiogram was obtained and showed nothing new from her last one. There were no medication changes made, except something for sleep and a lidocaine patch for discharge. Patient's buncher machine was called and updated about this event. She should plan follow ups with both PCP and buncher machine. It was concluded that her symptoms were not cardiac related due to serial troponins being negative, and telemetry monitoring was uneventful. A nodule was discovered on a chest CT that happens to be near where she is having the chest/rib pain, in addition, there was free fluid noted. Recommend follow up on this. Patient admits to having anxiety almost daily related to life responsibilities and psychotherapy was recommended. - ALLERGIES Allergies/Adverse Reactions: Allergies Allergy/AdvReac Type Severity Reaction Status Date / Time Tetracyclines Allergy Dizziness Verified 12/02/17 07:05 - MEDICATIONS Home Medications: Ambulatory Orders Medication Instructions Recorded Confirmed Cyclobenzaprine [Flexeril] 10 mg PO TID PRN 12/02/17 12/02/17 HYDROcod/ACETAM 5/325 [[place] 5/325] 1 tab PO TID PRN 12/02/17 12/02/17 Metoprolol Succinate [Toprol Xl] 37.5 mg PO DAILY 12/02/17 12/02/17 Lidocaine Patch 5% [Lidoderm Patch] 1 patch TOP DAILY PRN #5 patch 12/03/17 - PHYSICAL EXAM AT DISCHARGE General Appearance: positive: No acute distress, Alert Eyes Bilateral: positive: Normal inspection, PERRL, No lid inflammation, No scleral icterus ENT: positive: ENT inspection nml, Pharynx nml Neck: positive: Nml inspection, Thyroid nml, No JVD, Trachea midline Respiratory: positive: Chest non-tender, No respiratory distress, Breath sounds nml Cardiovascular: positive: Irregularly irregular, Systolic murmur Abdomen: positive: Non-tender, No organomegaly, Nml bowel sounds, No distention Back: positive: Nml inspection, CVA tenderness (L) Skin: positive: No rash, Warm, Dry Extremities: positive: Non-tender, Full ROM, Nml appearance, No pedal edema Neurologic/Psychiatric: positive: Oriented x3, CN's nml (2-12), Motor nml, Sensation nml, Depressed mood/affect Reflexes: Bicep (R): 3+, Bicep (L): 3+ - LABS Result Diagrams: 12/03/17 05:10 12/03/17 05:10 - DIAGNOSTIC IMAGING Diagnostic Imaging Results: Final report reviewed Diagnostic Imaging Results Comments: Chest x-ray: FINDINGS: Lungs/Pleura: No consolidation. No vascular congestion. No pneumothorax. No parenchymal cavities. Mediastinum: Heart size is normal. Aorta is mildly tortuous. Other: Degenerative changes of the thoracic spine and both shoulders. IMPRESSION: 1. No acute disease in the chest. Chest CT: FINDINGS: Pulmonary Arteries: Diagnostic quality: Adequate through the segmental arteries. No evidence for acute or chronic pulmonary emboli. Lungs/Pleura: No endobronchial obstruction. No areas of dense consolidation. No pneumothorax. Mild largely asymmetric subpleural reticulation and parenchyma scarring in both upper lobes, right greater than left. There is mild lower lobe bronchial dilatation noted. No vascular congestion. No pleural effusions. No pneumothorax. Subpleural 2 mm nodule left upper lobe, image 76 series 4. There is a 1 mm nodule left lower lobe, image 72 series 4. Mediastinum: Visualized thyroid gland is unremarkable. Mild degree of coronary artery calcified plaque. Subcentimeter paratracheal, mediastinal lymph nodes are seen. Subcentimeter hilar lymph nodes are noted. Heart size is normal. Small pericardial effusion. Small hiatal hernia. No mediastinal hematoma. Thoracic Aorta: No thoracic aneurysm. Maximal size of the mid ascending aorta measures 3.1 cm. No definitive dissection is noted. Upper Abdomen: Included portions of the liver, spleen, adrenals, pancreas and kidneys are unremarkable. There is edema along the proximal abdominal aorta, although largely along the margins of the celiac artery and posterior and cephalad to the pancreas and anterior to the proximal dominant. The visualized abdominal aorta is normal in caliber. Other: Degenerative changes of the thoracic spine and both shoulders. No acute osseous abnormalities. IMPRESSION: 1. No evidence of pulmonary embolus, aortic aneurysm or aortic dissection. 2. Bilateral upper lobe parenchymal scarring and mild subpleural reticulation. No areas of dense consolidation. No pneumothorax. 3. Numerous subcentimeter mediastinal and hilar lymph nodes. 4. Normal heart size. Mild degree of coronary artery calcified plaque. 5. Focal edema in the upper abdomen anterior and separate of the proximal abdominal aorta and posterior to the pancreas, although of uncertain etiology or origin. Normal caliber proximal aorta and celiac artery and SMA, which are widely patent. [facility] Referring Provider Line: [phone] SITE ID: [id number] Manager Fixed Income: Reading Radiologist: Kevon Suarez MD Releasing Radiologist: Kevon Suarez MD Released Date Time: 12/02/17 1003 cc: Jannet Botello PA-C; Malka Carlin MD ADDENDUM ADDENDUM: 12/02/17 10:40 Impression: 5. In regards to the edema in the upper abdomen, with this appearance consider follow-up CT of the abdomen in 2-3 months for reassessment. 6. Left upper lobe and left lower lobe nodules largest measuring 2 mm. See recommendations below. In a low risk patient no further follow-up is warranted. In a high risk patient follow-up chest CT is recommended in 12 months. Recommend follow-up of the described nodule(s) according to the following guidelines: Fleischner Society Recommendations 2017 MacMahon et al. Radiology 2017 Solid Nodules-Low Risk Patients: <6 mm (single or multiple) - No routine follow-up* 6-8 mm (single) -CT 6-12 at months, then consider CT at 18-24 months 6-8mm (multiple) -CT 3-6 at mo, then consider at CT 18-24 months >8 mm (single) -Consider CT, PET/CT, or tissue sampling at 3 months >8 mm (multiple) -CT 3-6 at mo, then consider CT at 18-24 months Solid Nodules-High Risk Patients: <6 mm (single or multiple) -Optional CT at 12 months* 6-8 mm (single) -CT at 6-12 months, then CT at 18-24 months 6-8mm (multiple) -CT at 3-6 months, then CT at 18-24 months >8 mm (single) -Consider CT, PET/CT, or tissue sampling at 3 months >8 mm (multiple) -CT at 3-6 months, then at 18-24 months *Nodules < 6mm do not require routine follow-up, but suspicious nodule morphology, upper lobe location, or both may warrant 12 month follow-up Subsolid nodules: <6 mm (single, GG or part solid) -No routine follow-up >=6 mm (single GG) -CT at 6-12 months to confirm, then CT q2 years until 5 years >=6 mm (single part solid) -CT at 3-6 months to confirm, if unchanged and solid <6mm, annual CT for 5 years <6 mm (multiple GG or part solid) -CT at 3-6 months. If stable, consider CT at 2 and 4 years >=6 mm (multiple GG or part solid) -CT at 3-6 months. Subsequent management based on most suspicious nodule(s). Consider follow-up at 2 and 4 years for certain suspicious nodules <6mm. If solid component develops or growth, consider resection - FOLLOW UP Follow Up: You came in with chest pain. All cardiac enzymes were negative and there were no impressive EKG changes other than tachycardia (fast heart rate). Your echocardiogram was normal. The pain you have on your left torso was treated with a lidocaine patch and a muscle relaxer. Notes from ED doctor: "The CT scan of your chest shows some small reactive lymph nodes in your chest and some small nodules in your lung and some edema in you abdominal cavity - I don't think any of these findings explain your symptoms today but please follow up with your PMD for a repeat chest xray in about 6 months and perhaps another CT scan or ultrasound of you abdomen in a few months", I will provide a copy of the results. I called Dr. Curtis's clinic this am to inform him of our inconclusive findings , and we will be faxing records to [phone] later today. Please see your PCP within a week. - TIME SPENT Time Spent in Discharge (Minutes): 60
== END 2017-12-03 09:45 | disposition home or self-care (01) ==
LOC: ED 06:55 → ICU 10:47 → OBS 20:11
PROVIDERS: ADMIT Nurse Practitioner; ATTEND Nurse Practitioner
DX: R07.9 Chest pain, unspecified (principal); R91.8 Other nonspecific abnormal finding of lung field; E87.1 Hypo-osmolality and hyponatremia; R18.8 Other ascites; R10.819 Abdominal tenderness, unspecified site; F41.9 Anxiety disorder, unspecified; I10 Essential (primary) hypertension; H54.61 Unqualified visual loss, right eye, normal vision left eye; R00.0 Tachycardia, unspecified; Z90.49 Acquired absence of other specified parts of digestive tract; Z91.81 History of falling; Z79.891 Long term (current) use of opiate analgesic; Z79.899 Other long term (current) drug therapy; Z87.828 Personal history of other (healed) physical injury and trauma
CPT/HCPCS: 36415; 71046; 71275; 80053; 81003; 83605; 83690; 83735; 84100; 84443; 84484; 85025; 85379; 87040; 87150; 87275; 87276; 93005; 93306; 96360; 96361; 99284; A9270; G0378; Q9967; 81001; 87086

== ENCOUNTER 2018-03-30 10:45 | Outpatient (CLI) | payer OTHER ==
[2018-03-30] MEDS ORDERED: IOPAMIDOL-300 50 ML VIAL ONE (11:02)
[2018-03-30] MEDS ORDERED: IOPAMIDOL-300 100 ML VIAL ONE (11:02)
[2018-03-30 11:25] LABS: CREATININE 0.5 mg/dL (0.4-1.0)
[2018-03-30] MEDS ORDERED: IOPAMIDOL-300 100 ML VIAL IVP ONE (15:41)
[2018-03-30] MEDS ORDERED: IOPAMIDOL-300 50 ML VIAL PO ONE (15:41)
--- NOTE | 2018-03-30 16:47 | CT Report ---
CT ABDOMEN AND PELVIS WITH CONTRAST: 03/30/2018 CLINICAL INDICATION: Abnormal inflammation on chest CT on 03/16/2018. TECHNIQUE: Axial CT images of the abdomen and pelvis were obtained with 100 mL Isovue-300 intravenously as well as oral contrast. COMPARISON: Comparison is made to images of the upper of chest CT of 12/02/2017, as well as previous abdominal CT of 04/12/2015. FINDINGS: Limited evaluation of the lung bases is unremarkable. ABDOMEN: The liver, spleen, pancreas, kidneys and adrenal glands are unremarkable. The previously seen inflammation posterior to the pancreas has resolved. No bowel dilatation, free gas, or free fluid is present. No abdominal adenopathy is seen. The gallbladder is not dilated. PELVIS: The pelvic organs appear unremarkable. No pelvic adenopathy or free fluid is present. Osseous structures demonstrate degenerative changes. IMPRESSION: RESOLUTION OF PREVIOUSLY SEEN INFLAMMATION POSTERIOR TO THE PANCREAS. CT DOSE REDUCTION STATEMENT In accordance with CT protocol optimization, one or more of the following dose reduction techniques were utilized for this exam: automated exposure control, adjustment of mA and/or KV based on patient size, or use of iterative reconstructive technique. TD: 03/30/2018 16:46
== END 2018-03-30 10:46 | disposition home or self-care (01) ==
LOC: LAB 10:45
PROVIDERS: ATTEND Physician Assistant Medical
DX: R91.8 Other nonspecific abnormal finding of lung field (principal)
CPT/HCPCS: 36415; 74177; 82565; Q9967

== ENCOUNTER 2018-04-01 15:33 | Outpatient (CLI) | payer OTHER ==
--- NOTE | 2018-04-02 18:26 | XRAY Report ---
EXAM: CHEST RADIOGRAPHY EXAM DATE: 04/01/2018 04:06 PM. CLINICAL HISTORY: Cough x5 months. COMPARISON: 12/02/2017. TECHNIQUE: 2 views. FINDINGS: Lungs/Pleura: No consolidation or vascular congestion. Mild biapical pleural parenchymal scarring. No pneumothorax or pleural effusion. Mediastinum: Normal heart size. Mildly tortuous aorta. Other: No acute fracture. IMPRESSION: 1. No acute cardiopulmonary findings or change. [facility] Referring Provider Line: [phone] SITE ID: [id number]
== END 2018-04-01 15:34 | disposition home or self-care (01) ==
LOC: DI 15:33
PROVIDERS: ATTEND Physician Assistant Medical
DX: R91.8 Other nonspecific abnormal finding of lung field (principal)
CPT/HCPCS: 71046

== ENCOUNTER 2018-06-24 12:29 | Outpatient (CLI) | payer OTHER ==
[2018-06-24] MEDS ORDERED: GADOBUTROL 7.5 MMOL/7.5 ML VIAL IVP ONE (14:14)
--- NOTE | 2018-06-25 22:07 | MRI Report ---
Procedure Date: 06/24/2018 Accession Number: [id number] / [id number] Procedure: MRI - Brain W/WO CPT Code: FULL RESULT: EXAM: MRI BRAIN WITHOUT AND WITH CONTRAST EXAM DATE: 06/24/2018 02:21 PM. CLINICAL HISTORY: Loss of taste, loss of sense of smell, vertigo. COMPARISON: None. TECHNIQUE: Multiplanar, multisequence T1-weighted and fluid-sensitive MR sequences of the brain were performed. Sequences optimized for routine evaluation. Other: None. IV Contrast: Without and with contrast, 7.5 cc IV Gadavist. FINDINGS: Diffusion weighted sequence shows no evidence for acute infarct. There is no mass, mass effect, midline shift or abnormal extraaxial fluid collection. Size and configuration of the ventricles are normal. Few scattered punctiform T2 hyperintensity seen in the frontal white matter. Otherwise signal within the cortex and white matter appear normal. Brainstem and cerebellum appear normal. Major intracranial flow voids appear normal. Limited evaluation of the arteries and dural venous sinus structures on postcontrast imaging appears normal. There is no abnormal parenchymal, pachymeningeal or leptomeningeal enhancement. Globes, orbits, optic nerve sheath complex, optic chiasm, pituitary, cavernous sinus and Meckel's cave appear normal. Minimal mucosal thickening in the left maxillary sinus antrum. Minimal mucosal thickening in the inferior right mastoid air cells, nonspecific. Otherwise paranasal sinuses and mastoid air cells appear well aerated. Marrow signal and extracranial soft tissue appear normal. Craniocervical junction and visualized upper cervical cord appear unremarkable. IMPRESSION: 1. Few nonspecific white matter T2 hyperintensities in the subcortical frontal lobe. 2. Otherwise normal MRI of the brain without and with contrast. RADIA
== END 2018-06-24 12:30 | disposition home or self-care (01) ==
LOC: DI 12:29
PROVIDERS: ATTEND Physician Assistant Medical
DX: R43.8 Other disturbances of smell and taste (principal); R43.0 Anosmia; R42 Dizziness and giddiness
CPT/HCPCS: 70553; A9585

== ENCOUNTER 2021-01-30 09:53 | Outpatient (CLI) | payer MEDICARE, OTHER ==
--- NOTE | 2021-01-30 16:54 | DEXA Report ---
PROCEDURE: Dexa Spine and/or Hip INDICATIONS: MENOPAUSAL STATE TECHNIQUE: Dual energy x-ray absorptiometry (DXA) was performed on a [employer] System. Regions measur ed are the AP Spine, femoral neck, and if needed forearm. COMPARISON: None. FINDINGS: Lumbar Spine: Bone Mineral Density 0.982 g/cm/cm,T score -1.7, Left Hip: Bone Mineral Density 0.765 g/cm/cm,T score -1.9, Left Femoral Neck: Bone Mineral Density 0.799 g/cm/cm, T score -1.7, Impression: Osteopenia. Patients with diagnosis of osteoporosis or osteopenia should have regular bone mineral density assess ment. For those eligible for Medicare, routine testing is allowed once every 2 years. Testing frequ ency can be increased for patients who have rapidly progressing disease or for those who are receivin g medical therapy to restore bone mass. Reviewed by: Juan Natarajan MD on 01/30/2021 4:53 PM PST Approved by: Juan Natarajan MD on 01/30/2021 4:53 PM PST Station ID: [id number]
== END 2021-01-30 09:54 | disposition home or self-care (01) ==
LOC: DI 09:53
PROVIDERS: ATTEND Nurse Practitioner
DX: M85.89 Other specified disorders of bone density and structure, multiple sites (principal); Z78.0 Asymptomatic menopausal state

== ENCOUNTER 2021-03-17 09:01 | Outpatient (CLI) | payer MEDICARE, OTHER ==
[2021-03-17 09:31] LABS: BASOPHILS # (AUTO) 0.1 10^3/uL (0.0-0.1); BASOPHILS % (AUTO) 0.9 %; EOSINOPHILS # (AUTO) 0.3 10^3/uL (0.0-0.7); EOSINOPHILS % (AUTO) 4.1 %; HCT - HEMATOCRIT 41.8 % (37.0-47.0); HGB - HEMOGLOBIN 13.9 g/dL (12.0-16.0); LYMPHOCYTES # (AUTO) 2.1 10^3/uL (1.5-3.5); LYMPHOCYTES % (AUTO) 30.6 %; MEAN CORPUSCULAR HEMOGLOBIN 30.2 pg (27.0-31.0); MEAN CORPUSCULAR HGB CONC 33.3 g/dL (32.0-36.0); MEAN CORPUSCULAR VOLUME 90.9 fL (81.0-99.0); MEAN PLATELET VOLUME 9.2 fL (7.9-10.8); MONOCYTES # (AUTO) 0.6 10^3/uL (0.0-1.0); MONOCYTES % (AUTO) 9.3 %; NEUTROPHILS # (AUTO) 3.7 10^3/uL (1.5-6.6); NEUTROPHILS % (AUTO) 54.8 %; PLT - PLATELET COUNT 259 10^3/uL (130-450); RED CELL DISTRIBUTION WIDTH 11.7 % (12.0-15.0); WHITE BLOOD COUNT 6.8 x10^3/uL (4.8-10.8)
[2021-03-17 09:51] LABS: ALBUMIN 4.6 g/dL (3.2-5.5); ALBUMIN/GLOBULIN RATIO 1.8 (1.0-2.2); ALKALINE PHOSPHATASE 100 IU/L (42-121); ALT ALANINE AMINOTRANSFERASE 27 IU/L (10-60); AST ASPARTATE AMINOTRANSFERASE 27 IU/L (10-42); BILIRUBIN,TOTAL 0.7 mg/dL (0.2-1.0); BUN - BLOOD UREA NITROGEN 8 mg/dL (6-20); CALCIUM 9.9 mg/dL (8.5-10.3); CARBON DIOXIDE - CO2 24 mmol/L (21-32); CHLORIDE 105 mmol/L (101-111); CHOL/HDL RATIO 2.6 (<4.4); CHOLESTEROL 240 mg/dL; CREATININE 0.5 mg/dL (0.4-1.0); GFR - MDRD 124 (>89); GLUCOSE 102 mg/dL (70-100); HDL CHOLESTEROL 91 mg/dL; LDL CHOLESTEROL,CALCULATED 127 mg/dL; LDL/HDL RATIO 1.4 (<4.4); POTASSIUM 4.2 mmol/L (3.5-5.0); SODIUM 139 mmol/L (135-145); TOTAL PROTEIN 7.2 g/dL (6.7-8.2); TRIGLYCERIDES 111 mg/dL; VLDL CHOLESTEROL 22 mg/dL
[2021-03-17 10:00] LABS: THYROID STIMULATING HORMONE 3.2 uIU/mL (0.34-5.60)
== END 2021-03-17 09:02 | disposition home or self-care (01) ==
LOC: LAB 09:01
DX: Z00.00 Encounter for general adult medical examination without abnormal findings (principal); I10 Essential (primary) hypertension; R00.2 Palpitations; Z79.899 Other long term (current) drug therapy
CPT/HCPCS: 36415; 80053; 80061; 83721; 84443; 85025

== ENCOUNTER 2021-05-08 08:58 | Outpatient (CLI) | payer MEDICARE, OTHER ==
--- NOTE | 2021-05-09 08:57 | Mammography Report ---
BILATERAL DIGITAL SCREENING MAMMOGRAM 3D/2D: 05/08/2021 CLINICAL: Routine screening. Comparison is made to exams dated: 10/11/2013 mammogram - [facility], 02/12/2009 mammogram, and 06/18/2007 mammogram - [facility]. There are scattered fibroglandular elements in b oth breasts. There are stable post operative findings in the right breast with stable appearance of scarring/archi tectural distortion. No significant masses, calcifications, or other findings are seen in either breast. There has been no significant interval change. IMPRESSION: BENIGN There is no mammographic evidence of malignancy. A 1 year screening mammogram is recommended. This exam was interpreted at Station ID: [id number]. NOTE: For mammograms, a report in lay terms will be sent to the patient. Approximately 15% of breast malignancies will not be visualized mammographically. In the management of a palpable breast mass, a negative mammogram must not discourage biopsy of a clinically suspicious lesion. Electronically Signed By: Dionisio Bragg M.D. aty/:05/08/2021 09:45:31 ACR BI-RADS Category 2: Benign Finding(s) 3342F PARENCHYMAL PATTERN: (A) - The breast(s) demonstrate(s) scattered fibroglandular densities. BI-RADS CATEGORY: (2) - 2 RECOMMENDATION: (ANNUAL) - Recommend routine annual screening mammography. [id number] 1 year screening LATERALITY: (B)
== END 2021-05-08 08:59 | disposition home or self-care (01) ==
LOC: DI 08:58
PROVIDERS: ATTEND Family Medicine
DX: Z12.31 Encounter for screening mammogram for malignant neoplasm of breast (principal)

== ENCOUNTER 2021-06-19 08:00 | Outpatient (CLI) | payer MEDICARE, OTHER ==
--- NOTE | 2021-06-19 17:12 | XRAY Report ---
PROCEDURE: Lumbar Spine 2 View INDICATIONS: LOWER BACK STRAIN TECHNIQUE: 2 views of the lumbar spine were acquired. COMPARISON: None. FINDINGS: Bones: 5 [id number] vertebrae are present. There is normal bony alignment. No vertebral body compression fractures. No suspicious bony lesions. Severe disc height loss at L4-L5. Lower lumbar fa cet hypertrophy. Suspect canal stenosis. Soft tissues: Overlying bowel gas pattern is normal. No suspicious soft tissue calcifications. IMPRESSION: Degenerative change. Suspect canal stenosis. No evidence acute bony abnormality of the l umbar spine. If clinical suspicion and/or symptoms persist, further assessment with repeat plain films or advanced imaging (e.g., CT, MRI, or bone scan) may be helpful for further assessment. Reviewed by: Yon Washington MD on 06/19/2021 5:11 PM PDT Approved by: Yon Washington MD on 06/19/2021 5:11 PM PDT Station ID: [id number]
== END 2021-06-19 23:59 | disposition home or self-care (01) ==
LOC: DI.S 08:00
PROVIDERS: ATTEND Emergency Medicine
DX: M47.816 Spondylosis without myelopathy or radiculopathy, lumbar region (principal); M51.36 Other intervertebral disc degeneration, lumbar region

== ENCOUNTER 2021-09-01 09:15 | Emergency (ER) | payer MEDICARE, OTHER ==
--- NOTE | 2021-09-01 09:47 | XRAY Report ---
PROCEDURE: Chest 1 View X-Ray INDICATIONS: Chest pain TECHNIQUE: One view of the chest was acquired. COMPARISON: CXR 04/01/2018. CT pulmonary angiogram 12/02/2017. FINDINGS: Surgical changes and devices: None. Lungs and pleura: No pleural effusions or pneumothorax. Subtle diffuse reticulation. No consolidatio n. Mediastinum: Mediastinal contours appear normal. Heart size is normal. Bones and chest wall: No suspicious bony lesions. Degenerative change at the left acromioclavicular joint. Overlying soft tissues appear unremarkable. IMPRESSION: No acute cardiopulmonary abnormality. Subtle diffuse reticulation. This could be due to scarring or interstitial lung disease. Reviewed by: Bi Keith MD on 09/01/2021 9:46 AM PDT Approved by: Bi Keith MD on 09/01/2021 9:46 AM PDT Station ID: [id number]
[2021-09-01 09:53] LABS: BASOPHILS # (AUTO) 0.1 10^3/uL (0.0-0.1); BASOPHILS % (AUTO) 1.1 %; EOSINOPHILS # (AUTO) 0.2 10^3/uL (0.0-0.7); EOSINOPHILS % (AUTO) 2.7 %; HCT - HEMATOCRIT 45.4 % (37.0-47.0); HGB - HEMOGLOBIN 15.4 g/dL (12.0-16.0); LYMPHOCYTES # (AUTO) 1.6 10^3/uL (1.5-3.5); LYMPHOCYTES % (AUTO) 24.8 %; MEAN CORPUSCULAR HGB CONC 33.9 g/dL (32.0-36.0); MEAN CORPUSCULAR VOLUME 91.3 fL (81.0-99.0); MEAN PLATELET VOLUME 9.6 fL (7.9-10.8); MONOCYTES # (AUTO) 0.6 10^3/uL (0.0-1.0); MONOCYTES % (AUTO) 9.4 %; NEUTROPHILS # (AUTO) 3.9 10^3/uL (1.5-6.6); NEUTROPHILS % (AUTO) 61.7 %; PLT - PLATELET COUNT 276 10^3/uL (130-450); RED BLOOD COUNT 4.97 10^6/uL (4.20-5.40); RED CELL DISTRIBUTION WIDTH 11.9 % (12.0-15.0); WHITE BLOOD COUNT 6.4 x10^3/uL (4.8-10.8)
[2021-09-01 10:07] LABS: ALBUMIN 4.9 g/dL (3.2-5.5); ALBUMIN/GLOBULIN RATIO 1.5 (1.0-2.2); BILIRUBIN,TOTAL 0.7 mg/dL (0.2-1.0); CALCIUM 9.8 mg/dL (8.5-10.3); CREATININE 0.5 mg/dL (0.4-1.0); POTASSIUM 3.9 mmol/L (3.5-5.0); TOTAL PROTEIN 8.1 g/dL (6.7-8.2)
[2021-09-01] MEDS ORDERED: METOPROLOL TARTRATE 50 MG TABLET PO STA (10:31)
--- NOTE | 2021-09-01 10:52 | ED Physician Documentation ---
PD HPI DYSPNEA - Stated complaint Stated Complaint: HIGH BP/DIZZY - Chief complaint Chief Complaint: Cardiac - History obtained from History obtained from: Patient - Additional information Additional information: Patient comes emergency department chief complaint of blood pressure being high. She denies CP, SOB, N/V, headache, blurred vision, or other neurologic deficits. Pt states she noticed her BP was high at home, and after several readings, it got higher (one reading of 200/100). Pt decided to come in after this. She takes metoprolol already, with no recent dose changes or new meds. Several days ago, pt had an episode of what felt like vertigo, but attributed it to dehydration, since she hadn't been drinking much. No current dizziness. No other complaints at this time. Review of Systems Ten Systems: 10 systems reviewed and negative Constitutional: reports: Reviewed and negative Eyes: reports: Reviewed and negative Ears: reports: Reviewed and negative Nose: reports: Reviewed and negative Throat: reports: Reviewed and negative Cardiac: reports: Reviewed and negative Respiratory: reports: Reviewed and negative GI: reports: Reviewed and negative : reports: Reviewed and negative Skin: reports: Reviewed and negative Musculoskeletal: reports: Reviewed and negative Neurologic: reports: Reviewed and negative Psychiatric: reports: Reviewed and negative Endocrine: reports: Reviewed and negative Immunocompromised: reports: Reviewed and negative PD PAST MEDICAL HISTORY - Past Medical History Cardiovascular: None, Hypertension Respiratory: None Endocrine/Autoimmune: None GI: Diverticulitis, Other (status post bowel resection, stable.) 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 : None HEENT: Chronic vision loss (patient born with right eye vision loss, blurred vision.) Psych: Anxiety Musculoskeletal: None Derm: None - Past Surgical History Past Surgical History: Yes General: Bowel surgery /VARNISHER APPRENTICE: Hysterectomy Cardiovascular: Other (cardiac echo stress tests.) - Present Medications Home Medications: Ambulatory Orders Medication Instructions Recorded Confirmed Metoprolol Succinate [Toprol Xl] 50 mg PO DAILY 12/02/17 12/02/17 ALPRAZolam [Alprazolam] 0.5 mg PO DAILY PRN 09/01/21 09/01/21 Ibuprofen [Motrin] 600 mg PO Q6H PRN 09/01/21 09/01/21 Metoprolol Tartrate [Lopressor] 25 - 50 mg PO DAILY PRN #60 tablet 09/01/21 methocarbamoL [Methocarbamol] 750 mg PO TID PRN 09/01/21 09/01/21 - Allergies Allergies/Adverse Reactions: Allergies Allergy/AdvReac Type Severity Reaction Status Date / Time Tetracyclines Allergy Dizziness Verified 09/01/21 09:27 - Social History Does the pt smoke?: No Smoking Status: Never smoker Does the pt drink ETOH?: Yes Does the pt have substance abuse?: No - Immunizations Immunizations are current?: Yes - POLST Patient has POLST: No POLST Status: Full Code PD ED PE NORMAL - Vitals Vital signs reviewed: Yes - General General: Alert and oriented X 3, No acute distress, Well developed/nourished - HEENT HEENT: Atraumatic, PERRL, EOMI, Moist mucous membranes - Neck Neck: Supple, no meningeal sign - Cardiac Cardiac: RRR, No murmur - Respiratory Respiratory: No respiratory distress, Clear bilaterally - Abdomen Abdomen: Soft, Non tender, Non distended - Derm Derm: Normal color, Warm and dry, No rash - Extremities Extremities: No deformity - Neuro Neuro: Alert and oriented X 3, computer scientist 2-12 intact, No motor deficit, No sensory deficit, Normal speech - Psych Psych: Normal mood, Normal affect Results - Vitals Vitals: Oxygen O2 Source Room air - EKG (time done) 0916 Rate: Rate (enter#) (87) Rhythm: NSR, LAE [place]: LAD Intervals: Normal [place] QRS: Normal Ischemia: Normal ST segments. No: T wave inversion Compare to prior EKG: Old EKG unavailable Computer interpretation: Agree with computer - Labs Labs: Laboratory Tests 09/01/21 09/01/21 09/01/21 09:45 09:45 09:45 WBC 6.4 RBC 4.97 Hgb 15.4 Hct 45.4 MCV 91.3 MCH 31.0 MCHC 33.9 RDW 11.9 L Plt Count 276 MPV 9.6 Neut # (Auto) 3.9 Lymph # (Auto) 1.6 [place] # (Auto) 0.6 Eos # (Auto) 0.2 Baso # (Auto) 0.1 Absolute Nucleated RBC 0.00 Nucleated RBC % 0.0 Sodium 134 L Potassium 3.9 Chloride 98 L Carbon Dioxide 24 Anion Gap 12.0 BUN 11 Creatinine 0.5 Estimated GFR (MDRD) 123 Glucose 121 H Calcium 9.8 Total Bilirubin 0.7 AST 28 ALT 24 Alkaline Phosphatase 115 Troponin I High Sens 4.6 Total Protein 8.1 Albumin 4.9 Globulin 3.2 Albumin/Globulin Ratio 1.5 Lipase 34 - Rads (name of study) CXR Radiology: Final report received, EMP read indepedently, See rad report (neg) PD MEDICAL DECISION MAKING - ED course Complexity details: reviewed results, re-evaluated patient, considered differential, d/w patient ED course: The pt's BP was 170's then 160's/90's. I d/w her that there is no evidence of hypertensive emergency. Pt has a room worker for previous dysrhythmia, and I have advised her to follow up with him (she has an appt in Sep, but can move it sooner) or her PCP. I will increase her metoprolol for now, with increased dose to be taken only if pressure is running high (parameters given). We have discussed the usual indications for return. Departure - Departure Disposition: Home, Self Care Clinical Impression: Hypertension Qualifiers: Hypertension type: primary hypertension Qualified Code(s): I10 - Essential (primary) hypertension Condition: Stable Instructions: ED HTN Established Prescriptions: Metoprolol Tartrate [Lopressor] 25 - 50 mg PO DAILY PRN #60 tablet PRN Reason: Per Physician Order Comments: Your blood pressure is elevated today, but there are no evidences of endorgan damage or strain. Additionally, your pressure has been slowly trending downward here in the emergency department. As we discussed, you had been given a dose of metoprolol here in the emergency department and should continue your regular metoprolol at home. In addition to this, we will give you a prescription for the shorter acting, nonextended release metoprolol, that you may take in addition to your regular metoprolol, if your blood pressures continue to run high. This may be taken at the same time as you take the extended release, daily metoprolol, or can be taken a little later in the day if you find that your pressure is still running higher than it should. You may take 1 to 2 tablets of the shorter acting metoprolol on top of the daily metoprolol you are already on. Whether or not to take this, and how much, is dependent on how your blood pressure is doing. If your blood pressure is above 170 for the top number, And it has been a couple of hours since you took your daily metoprolol, then you may take 50 mg of the shorter acting metoprolol. If you are blood pressure upper number is less than 170, then try 25 mg first, with the understanding that you may take a second dose in a couple of hours if your blood pressure continues to run higher than it should. Please keep the appointments you have at Dr. Curtis's office. Please return to the emergency department if you develop any chest pain or shortness of breath. Discharge Date/Time: 09/01/21 11:25
[2021-09-01 11:26] VITALS: BP 91/63
== END 2021-09-01 11:25 | disposition home or self-care (01) ==
LOC: ED 09:15
DX: I10 Essential (primary) hypertension (principal)
CPT/HCPCS: 36415; 71045; 80053; 83690; 84484; 85025; 93005; 99283; 99284; A9270

== ENCOUNTER 2021-10-26 19:04 | Emergency (ER) | payer MEDICARE, OTHER ==
[2021-10-26 19:41] LABS: BASOPHILS # (AUTO) 0.1 10^3/uL (0.0-0.1); BASOPHILS % (AUTO) 0.7 %; EOSINOPHILS # (AUTO) 0.3 10^3/uL (0.0-0.7); EOSINOPHILS % (AUTO) 3.5 %; HCT - HEMATOCRIT 40.7 % (37.0-47.0); HGB - HEMOGLOBIN 13.9 g/dL (12.0-16.0); LYMPHOCYTES # (AUTO) 1.9 10^3/uL (1.5-3.5); LYMPHOCYTES % (AUTO) 23.6 %; MEAN CORPUSCULAR HEMOGLOBIN 30.8 pg (27.0-31.0); MEAN CORPUSCULAR HGB CONC 34.2 g/dL (32.0-36.0); MEAN CORPUSCULAR VOLUME 90.2 fL (81.0-99.0); MEAN PLATELET VOLUME 9.1 fL (7.9-10.8); MONOCYTES # (AUTO) 0.9 10^3/uL (0.0-1.0); MONOCYTES % (AUTO) 11.3 %; NEUTROPHILS # (AUTO) 4.9 10^3/uL (1.5-6.6); NEUTROPHILS % (AUTO) 60.8 %; PLT - PLATELET COUNT 261 10^3/uL (130-450); RED BLOOD COUNT 4.51 10^6/uL (4.20-5.40); RED CELL DISTRIBUTION WIDTH 11.6 % (12.0-15.0)
[2021-10-26 19:51] LABS: CREATININE 0.9 mg/dL (0.4-1.0); POTASSIUM 3.4 mmol/L (3.5-5.0)
[2021-10-26] MEDS ORDERED: diltiaZEM INJ 5 MG/ML VIAL IVP STA (20:23)
--- NOTE | 2021-10-26 20:24 | ED Physician Documentation ---
PD HPI CHEST PAIN - Stated complaint Stated Complaint: RAPID HEART BEAT, HIGH BP - Chief complaint Chief Complaint: Cardiac - History obtained from History obtained from: Patient - Additional information Additional information: 66-year-old woman with history of anxiety, unexplained tachycardia and blood pressure issues. She started having blood pressure issues a few years ago as well as palpitations. She has had a Holter monitor without a specific diagnosis but her lotus notes developer told her to do vagal maneuvers so presume he presumed it was an SVT. She is on metoprolol. She is had some uncontrolled blood pressures recently and presents with rapid heart rate tonight that she is unsure whether it was regular or irregular. Of note she saw her lotus notes developer with traumatic right leg swelling a couple weeks ago and a D-dimer at that time was negative. 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: Hysterectomy Cardiovascular: Other - Present Medications Home Medications: Ambulatory Orders Medication Instructions Recorded Confirmed Metoprolol Succinate [Toprol Xl] 50 mg PO DAILY 12/02/17 12/02/17 ALPRAZolam [Alprazolam] 0.5 mg PO DAILY PRN 09/01/21 09/01/21 Ibuprofen [Motrin] 600 mg PO Q6H PRN 09/01/21 09/01/21 Metoprolol Tartrate [Lopressor] 25 - 50 mg PO DAILY PRN #60 tablet 09/01/21 methocarbamoL [Methocarbamol] 750 mg PO TID PRN 09/01/21 09/01/21 diltiaZEM CD [Cardizem Cd] 120 mg PO DAILY #30 10/26/21 - Allergies Allergies/Adverse Reactions: Allergies Allergy/AdvReac Type Severity Reaction Status Date / Time Tetracyclines Allergy Dizziness Verified 10/26/21 19:22 - Social History Does the pt smoke?: No Smoking Status: Never smoker Does the pt drink ETOH?: Yes Does the pt have substance abuse?: No - Immunizations Immunizations are current?: Yes - POLST Patient has POLST: No POLST Status: Full Code PD ED PE NORMAL - Vitals Vital signs reviewed: Yes - General General: Alert and oriented X 3, No acute distress - HEENT HEENT: PERRL, EOMI - Neck Neck: Supple, no meningeal sign, No bony TTP - Cardiac Cardiac: RRR, No murmur, Other (Modest sinus tachycardia on the monitor) - Respiratory Respiratory: No respiratory distress, Clear bilaterally - Abdomen Abdomen: Non tender - Extremities Extremities: No edema, No calf tenderness / cord - Neuro Neuro: Alert and oriented X 3, Normal speech Results - Vitals Vitals: Vital Signs - 24 hr 10/26/21 10/26/21 10/26/21 19:14 19:23 20:49 Temperature 36.8 C Heart Rate 107 H 98 87 Respiratory 15 20 13 Rate Blood Pressure 171/80 H 178/76 H 125/60 O2 Saturation 99 98 98 Oxygen O2 Source Room air - EKG (time done) 1919 Rate: Rate (enter#) (97) Rhythm: NSR, LAE [place]: Normal Intervals: Normal [place] QRS: Normal Ischemia: Non specific changes - Labs Labs: Laboratory Tests 10/26/21 10/26/21 10/26/21 19:37 19:37 19:37 WBC 8.0 RBC 4.51 Hgb 13.9 Hct 40.7 MCV 90.2 MCH 30.8 MCHC 34.2 RDW 11.6 L Plt Count 261 MPV 9.1 Neut # (Auto) 4.9 Lymph # (Auto) 1.9 [place] # (Auto) 0.9 Eos # (Auto) 0.3 Baso # (Auto) 0.1 Absolute Nucleated RBC 0.00 Nucleated RBC % 0.0 Sodium 131 L Potassium 3.4 L Chloride 97 L Carbon Dioxide 22 Anion Gap 12.0 BUN 15 Creatinine 0.9 Estimated GFR (MDRD) 63 L Glucose 253 H Calcium 9.0 Magnesium 2.0 TSH 4.83 PD MEDICAL DECISION MAKING - ED course ED course: 66-year-old woman with symptomatic tachycardia. She is already been ruled out for thromboembolic disease by her physician earlier this month. She is on metoprolol for same, currently taking 62-1/2 mg in the morning and 12-1/2 mg at night if needed for higher blood pressures. No evidence of hyperthyroidism. Labs notable for modest hyponatremia and hyperglycemia. She notes increased water intake today and had blood sugar dried cranberries just prior to arrival so this may be causative. Advise close recheck. After the administration of 10 mg of IV diltiazem she was feeling much better and she was prescribed oral diltiazem and discussed to follow-up with her doctor and her lotus notes developer for recheck and medication management. Departure - Departure Disposition: Home, Self Care Clinical Impression: Hypertension, Dyspnea Condition: Good Record reviewed to determine appropriate education?: Yes Instructions: ED HTN Established Prescriptions: diltiaZEM CD [Cardizem Cd] 120 mg PO DAILY #30 Comments: Given your intermittent symptoms of tachycardia and hypertension, reasonable to talk with your doctor about a work-up for pheochromocytoma. As discussed we cannot do this out of the emergency department because it requires a 24-hour urine collection and send out labs. We do note tonight that your sodium is on the low side at 131 and your blood glucose on the high side at 253. Also discussed these with your doctor in follow-up. Probably need repeat labs with Dr Norowod later this week. Followup with Dr Curtis later this month and discuss the new medication regimen.
[2021-10-26] MEDS ORDERED: ACETAMINOPHEN 325 MG TABLET PO STA (21:01)
[2021-10-26 21:08] VITALS: BP 151/81
== END 2021-10-26 21:20 | disposition home or self-care (01) ==
LOC: ED 19:04
DX: I10 Essential (primary) hypertension (principal); R06.00 Dyspnea, unspecified
CPT/HCPCS: 36415; 80048; 83735; 84443; 85025; 93005; 96374; 99283; 99284; A9270

== ENCOUNTER 2021-10-28 08:00 | Outpatient (CLI) | payer MEDICARE, OTHER | END 2021-10-28 23:59 | disposition home or self-care (01) | LOC: LAB.F 08:00 | PROVIDERS: ATTEND Internal Medicine | DX: R30.0 Dysuria (principal) | CPT/HCPCS: 81002 ==

== ENCOUNTER 2021-10-29 08:03 | Outpatient (CLI) | payer MEDICARE, OTHER ==
[2021-10-29 14:50] LABS: BASOPHILS # (AUTO) 0.1 10^3/uL (0.0-0.1); BASOPHILS % (AUTO) 0.9 %; EOSINOPHILS # (AUTO) 0.3 10^3/uL (0.0-0.7); HCT - HEMATOCRIT 45.2 % (37.0-47.0); HGB - HEMOGLOBIN 15.1 g/dL (12.0-16.0); LYMPHOCYTES # (AUTO) 2.1 10^3/uL (1.5-3.5); LYMPHOCYTES % (AUTO) 27.2 %; MEAN CORPUSCULAR HEMOGLOBIN 30.5 pg (27.0-31.0); MEAN CORPUSCULAR HGB CONC 33.4 g/dL (32.0-36.0); MEAN CORPUSCULAR VOLUME 91.3 fL (81.0-99.0); MEAN PLATELET VOLUME 10.1 fL (7.9-10.8); MONOCYTES # (AUTO) 0.8 10^3/uL (0.0-1.0); MONOCYTES % (AUTO) 10.4 %; NEUTROPHILS # (AUTO) 4.4 10^3/uL (1.5-6.6); NEUTROPHILS % (AUTO) 57.1 %; PLT - PLATELET COUNT 304 10^3/uL (130-450); RED BLOOD COUNT 4.95 10^6/uL (4.20-5.40); RED CELL DISTRIBUTION WIDTH 11.9 % (12.0-15.0); WHITE BLOOD COUNT 7.7 x10^3/uL (4.8-10.8)
[2021-10-29 15:38] LABS: ALBUMIN 4.8 g/dL (3.2-5.5); ALBUMIN/GLOBULIN RATIO 1.7 (1.0-2.2); ALKALINE PHOSPHATASE 92 IU/L (42-121); ALT ALANINE AMINOTRANSFERASE 21 IU/L (10-60); AST ASPARTATE AMINOTRANSFERASE 27 IU/L (10-42); BILIRUBIN,TOTAL 0.9 mg/dL (0.2-1.0); BUN - BLOOD UREA NITROGEN 11 mg/dL (6-20); CALCIUM 9.9 mg/dL (8.5-10.3); CARBON DIOXIDE - CO2 26 mmol/L (21-32); CHLORIDE 102 mmol/L (101-111); CHOL/HDL RATIO 2.8 (<4.4); CHOLESTEROL 232 mg/dL; CREATININE 0.5 mg/dL (0.4-1.0); GFR - MDRD 123 (>89); GLUCOSE 98 mg/dL (70-100); HDL CHOLESTEROL 84 mg/dL; LDL CHOLESTEROL,CALCULATED 131 mg/dL; LDL/HDL RATIO 1.6 (<4.4); POTASSIUM 4.1 mmol/L (3.5-5.0); SODIUM 138 mmol/L (135-145); TOTAL PROTEIN 7.7 g/dL (6.7-8.2); TRIGLYCERIDES 87 mg/dL; VLDL CHOLESTEROL 17 mg/dL
[2021-10-29 21:00] LABS: ESTIMATED AVERAGE GLUCOSE 108 mg/dL (70-100); HEMOGLOBIN A1c% 5.4 % (4.27-6.07)
== END 2021-10-29 08:04 | disposition home or self-care (01) ==
LOC: LAB.S 08:03
PROVIDERS: ATTEND Internal Medicine
DX: I10 Essential (primary) hypertension (principal); R73.9 Hyperglycemia, unspecified
CPT/HCPCS: 36415; 80053; 80061; 83036; 83721; 85025

== ENCOUNTER 2021-12-05 16:12 | Outpatient (CLI) | payer MEDICARE, OTHER ==
[2021-12-05 16:45] LABS: ALBUMIN 4.4 g/dL (3.2-5.5); BILIRUBIN,DIRECT 0.1 mg/dL (0.1-0.5); BILIRUBIN,TOTAL 0.4 mg/dL (0.2-1.0); CALCIUM 9.6 mg/dL (8.5-10.3); CREATININE 0.6 mg/dL (0.4-1.0); POTASSIUM 3.9 mmol/L (3.5-5.0)
== END 2021-12-05 16:13 | disposition home or self-care (01) ==
LOC: LAB 16:12
PROVIDERS: ATTEND Internal Medicine Cardiovascular Disease
DX: I10 Essential (primary) hypertension (principal); E78.5 Hyperlipidemia, unspecified
CPT/HCPCS: 36415; 80048; 80076

== ENCOUNTER 2022-01-01 08:38 | Outpatient (CLI) | payer MEDICARE, OTHER ==
[2022-01-01 09:03] LABS: BASOPHILS # (AUTO) 0.1 10^3/uL (0.0-0.1); BASOPHILS % (AUTO) 0.8 %; EOSINOPHILS # (AUTO) 0.3 10^3/uL (0.0-0.7); EOSINOPHILS % (AUTO) 3.8 %; HCT - HEMATOCRIT 39.3 % (37.0-47.0); HGB - HEMOGLOBIN 13.8 g/dL (12.0-16.0); LYMPHOCYTES # (AUTO) 1.6 10^3/uL (1.5-3.5); LYMPHOCYTES % (AUTO) 24.5 %; MEAN CORPUSCULAR HEMOGLOBIN 30.7 pg (27.0-31.0); MEAN CORPUSCULAR HGB CONC 35.1 g/dL (32.0-36.0); MEAN CORPUSCULAR VOLUME 87.5 fL (81.0-99.0); MEAN PLATELET VOLUME 8.9 fL (7.9-10.8); MONOCYTES # (AUTO) 0.7 10^3/uL (0.0-1.0); MONOCYTES % (AUTO) 10.7 %; NEUTROPHILS # (AUTO) 3.9 10^3/uL (1.5-6.6); PLT - PLATELET COUNT 247 10^3/uL (130-450); RED BLOOD COUNT 4.49 10^6/uL (4.20-5.40); RED CELL DISTRIBUTION WIDTH 11.6 % (12.0-15.0); WHITE BLOOD COUNT 6.5 x10^3/uL (4.8-10.8)
[2022-01-01 09:21] LABS: ALBUMIN 4.5 g/dL (3.2-5.5); ALBUMIN/GLOBULIN RATIO 1.7 (1.0-2.2); ALKALINE PHOSPHATASE 92 IU/L (42-121); ALT ALANINE AMINOTRANSFERASE 23 IU/L (10-60); AST ASPARTATE AMINOTRANSFERASE 24 IU/L (10-42); BILIRUBIN,TOTAL 0.8 mg/dL (0.2-1.0); BUN - BLOOD UREA NITROGEN 14 mg/dL (6-20); CALCIUM 9.6 mg/dL (8.5-10.3); CARBON DIOXIDE - CO2 24 mmol/L (21-32); CHLORIDE 92 mmol/L (101-111); CHOL/HDL RATIO 1.8 (<4.4); CHOLESTEROL 155 mg/dL; CREATININE 0.5 mg/dL (0.4-1.0); GFR - MDRD 123 (>89); GLUCOSE 104 mg/dL (70-100); HDL CHOLESTEROL 87 mg/dL; LDL CHOLESTEROL,CALCULATED 57 mg/dL; LDL/HDL RATIO 0.7 (<4.4); POTASSIUM 4.3 mmol/L (3.5-5.0); SODIUM 127 mmol/L (135-145); TOTAL PROTEIN 7.2 g/dL (6.7-8.2); TRIGLYCERIDES 57 mg/dL; VLDL CHOLESTEROL 11 mg/dL
[2022-01-01 12:07] LABS: ESTIMATED AVERAGE GLUCOSE 105 mg/dL (70-100); HEMOGLOBIN A1c% 5.3 % (4.27-6.07)
== END 2022-01-01 08:39 | disposition home or self-care (01) ==
LOC: LAB 08:38
PROVIDERS: ATTEND Internal Medicine
DX: I10 Essential (primary) hypertension (principal); Z13.220 Encounter for screening for lipoid disorders; R73.9 Hyperglycemia, unspecified; E78.5 Hyperlipidemia, unspecified
CPT/HCPCS: 36415; 80053; 80061; 83036; 83721; 85025

== ENCOUNTER 2022-01-30 15:15 | Outpatient (CLI) | payer MEDICARE, OTHER ==
[2022-01-30 15:40] LABS: CALCIUM 9.8 mg/dL (8.5-10.3); CREATININE 0.5 mg/dL (0.4-1.0); POTASSIUM 4.2 mmol/L (3.5-5.0)
== END 2022-01-30 15:16 | disposition home or self-care (01) ==
LOC: LAB 15:15
PROVIDERS: ATTEND Physician Assistant Medical
DX: Z79.899 Other long term (current) drug therapy (principal); I10 Essential (primary) hypertension
CPT/HCPCS: 36415; 80048

== ENCOUNTER 2022-02-23 10:14 | Outpatient (CLI) | payer MEDICARE, OTHER ==
[2022-02-23 10:36] LABS: CALCIUM 9.5 mg/dL (8.5-10.3); CREATININE 0.6 mg/dL (0.4-1.0); POTASSIUM 4.6 mmol/L (3.5-5.0)
[2022-02-23 11:39] LABS: FECAL OCCULT BLOOD (FIT) NEGATIVE (NEGATIVE)
== END 2022-02-23 10:15 | disposition home or self-care (01) ==
LOC: LAB 10:14
PROVIDERS: ATTEND Internal Medicine
DX: E87.1 Hypo-osmolality and hyponatremia (principal); Z12.11 Encounter for screening for malignant neoplasm of colon
CPT/HCPCS: 36415; 80048; 82274

== ENCOUNTER 2022-04-17 11:53 | Outpatient (CLI) | payer MEDICARE, OTHER ==
[2022-04-17 12:16] LABS: CALCIUM 9.8 mg/dL (8.5-10.3); CREATININE 0.6 mg/dL (0.4-1.0); POTASSIUM 4.3 mmol/L (3.5-5.0)
== END 2022-04-17 11:54 | disposition home or self-care (01) ==
LOC: LAB 11:53
PROVIDERS: ATTEND Physician Assistant Medical
DX: I10 Essential (primary) hypertension (principal); Z79.899 Other long term (current) drug therapy
CPT/HCPCS: 36415; 80048

== ENCOUNTER 2022-07-28 09:44 | Emergency (ER) | payer MEDICARE, OTHER ==
[2022-07-28 10:31] LABS: BASOPHILS # (AUTO) 0.1 10^3/uL (0.0-0.1); BASOPHILS % (AUTO) 0.7 %; EOSINOPHILS # (AUTO) 0.1 10^3/uL (0.0-0.7); HCT - HEMATOCRIT 41.9 % (37.0-47.0); HGB - HEMOGLOBIN 14.2 g/dL (12.0-16.0); LYMPHOCYTES # (AUTO) 1.1 10^3/uL (1.5-3.5); MEAN CORPUSCULAR HEMOGLOBIN 30.5 pg (27.0-31.0); MEAN CORPUSCULAR HGB CONC 33.9 g/dL (32.0-36.0); MEAN CORPUSCULAR VOLUME 89.9 fL (81.0-99.0); MEAN PLATELET VOLUME 9.2 fL (7.9-10.8); MONOCYTES # (AUTO) 0.7 10^3/uL (0.0-1.0); MONOCYTES % (AUTO) 10.3 %; NEUTROPHILS # (AUTO) 5.1 10^3/uL (1.5-6.6); NEUTROPHILS % (AUTO) 71.4 %; PLT - PLATELET COUNT 255 10^3/uL (130-450); RED BLOOD COUNT 4.66 10^6/uL (4.20-5.40); RED CELL DISTRIBUTION WIDTH 11.9 % (12.0-15.0); WHITE BLOOD COUNT 7.1 x10^3/uL (4.8-10.8)
--- NOTE | 2022-07-28 10:47 | ED Physician Documentation ---
PD HPI CHEST PAIN - Stated complaint Stated Complaint: RACING HEART/DIZZY - Chief complaint Chief Complaint: Cardiac - History obtained from History obtained from: Patient - History of Present Illness Timing - onset: How many days ago (few) Timing - onset during: Light activity Timing - duration: Seconds, Minutes Timing - details: Abrupt onset (she states she has had feeling of heart pounding and going fast at times for past few days. Feels lightheaded with it. Today had feeling of vertigo when she stood up and then felt weaker, took her BP and it was elevated about 180s systolic. no chest pain nor dysnpea.) Location: Substernal (feeling of heart pounding.) Improved by: Rest Worsened by: No: Inspiration Associated symptoms: Feeling faint / dizzy, General Weakness, Palpitations. No: Shortness of air, Nausea, Cough Similar symptoms before: Has not had sx before Recently seen: Not recently seen Review of Systems Constitutional: denies: Fever, Chills Nose: denies: Rhinorrhea / runny nose, Congestion Throat: denies: Sore throat Cardiac: reports: Palpitations. denies: Chest pain / pressure, Pedal edema, Calf pain Respiratory: denies: Cough GI: reports: Nausea. denies: Abdominal Pain, Vomiting, Diarrhea, Bloody / black stool Neurologic: reports: Generalized weakness. 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: None : None HEENT: Chronic vision loss Psych: Anxiety Musculoskeletal: None Derm: None - Past Surgical History Past Surgical History: Yes General: Bowel surgery /DIAMOND MOUNTER: Hysterectomy Cardiovascular: Other - Present Medications Home Medications: Ambulatory Orders Medication Instructions Recorded Confirmed Metoprolol Succinate [Toprol Xl] 50 mg PO DAILY 12/02/17 07/28/22 Losartan Potassium 25 mg PO BID 07/28/22 07/28/22 Meclizine HCl [Motion Sickness] 25 mg PO Q6H PRN #15 tablet 07/28/22 PARoxetine [Paxil] 5 mg PO ONCE PRN 07/28/22 07/28/22 - Allergies Allergies/Adverse Reactions: Allergies Allergy/AdvReac Type Severity Reaction Status Date / Time Tetracyclines Allergy Dizziness Verified 07/28/22 09:56 - Social History Does the pt smoke?: No Smoking Status: Never smoker Does the pt drink ETOH?: Yes Does the pt have substance abuse?: No - Immunizations Immunizations are current?: Yes - POLST Patient has POLST: No POLST Status: Full Code PD ED PE NORMAL - Vitals Vital signs reviewed: Yes - General General: Alert and oriented X 3, No acute distress, Well developed/nourished - HEENT HEENT: Ears normal, Pharynx benign - Neck Neck: Supple, no meningeal sign, No adenopathy - Cardiac Cardiac: RRR, No murmur - Respiratory Respiratory: Clear bilaterally - Derm Derm: Normal color, Warm and dry - Extremities Extremities: Normal ROM s pain, No edema, No calf tenderness / cord - Neuro Neuro: Alert and oriented X 3, machine bunch maker 2-12 intact, No motor deficit, No sensory deficit, Normal speech Eye Opening: Spontaneous Motor: Obeys Commands Verbal: Oriented GCS Score: 15 Results - Vitals Vitals: Oxygen O2 Source Room air - Labs Labs: Laboratory Tests 07/28/22 07/28/22 07/28/22 10:27 10:27 10:27 WBC 7.1 RBC 4.66 Hgb 14.2 Hct 41.9 MCV 89.9 MCH 30.5 MCHC 33.9 RDW 11.9 L Plt Count 255 MPV 9.2 Neut # (Auto) 5.1 Lymph # (Auto) 1.1 L [place] # (Auto) 0.7 Eos # (Auto) 0.1 Baso # (Auto) 0.1 Absolute Nucleated RBC 0.00 Nucleated RBC % 0.0 Sodium 134 L Potassium 3.9 Chloride 102 Carbon Dioxide 22 Anion Gap 10.0 BUN 11 Creatinine 0.5 Estimated GFR (MDRD) 123 Glucose 119 H Calcium 9.5 Magnesium Total Bilirubin 0.7 AST 32 ALT 31 Alkaline Phosphatase 105 Troponin I High Sens 10.6 Total Protein 7.5 Albumin 4.6 Globulin 2.9 Albumin/Globulin Ratio 1.6 Lipase 37 TSH 07/28/22 07/28/22 10:27 10:27 WBC RBC Hgb Hct MCV MCH MCHC RDW Plt Count MPV Neut # (Auto) Lymph # (Auto) [place] # (Auto) Eos # (Auto) Baso # (Auto) Absolute Nucleated RBC Nucleated RBC % Sodium Potassium Chloride Carbon Dioxide Anion Gap BUN Creatinine Estimated GFR (MDRD) Glucose Calcium Magnesium 2.0 Total Bilirubin AST ALT Alkaline Phosphatase Troponin I High Sens Total Protein Albumin Globulin Albumin/Globulin Ratio Lipase TSH 3.89 PD MEDICAL DECISION MAKING - ED course Complexity details: considered differential, d/w patient Departure - Departure Disposition: 01 Home, Self Care Clinical Impression: Elevated blood pressure, situational, Episode of dizziness Condition: Stable Instructions: ED Vertigo Unspecified Prescriptions: Meclizine HCl [Motion Sickness] 25 mg PO Q6H PRN #15 tablet PRN Reason: Vertigo Comments: Continue with your current medications. I would not really change or adjust them at this point based on just the blood pressure readings today. Continue to stay well-hydrated. Your electrolytes and blood sugar and kidney function look good on basic blood test. The blood test marker called troponin to look for signs of heart injury is normal. Your EKG and heart monitor are normal as well. The symptoms you describe have what sounds like an inner ear/vertigo component to it. I would suggest some meclizine every 8 hours or so if needed for his feelings of dizziness for the next couple of days. Recheck if not improved completely over the next few days and return sooner if worse. Discharge Date/Time: 07/28/22 12:39
--- NOTE | 2022-07-28 10:48 | XRAY Report ---
PROCEDURE: Chest 1 View X-Ray INDICATIONS: Chest pain TECHNIQUE: One view of the chest was acquired. COMPARISON: CXR 09/01/2021, 04/01/2018. FINDINGS: Surgical changes and devices: None. Lungs and pleura: No pleural effusions or pneumothorax. Lungs are clear. Mediastinum: Mediastinal contours appear normal. Heart size is normal. Bones and chest wall: No suspicious bony lesions. Overlying soft tissues appear unremarkable. IMPRESSION: No acute cardiopulmonary abnormality. Reviewed by: Bi Keith MD on 07/28/2022 10:47 AM PDT Approved by: Bi Keith MD on 07/28/2022 10:47 AM PDT Station ID: [id number]
[2022-07-28 11:16] LABS: ALBUMIN 4.6 g/dL (3.2-5.5); ALBUMIN/GLOBULIN RATIO 1.6 (1.0-2.2); BILIRUBIN,TOTAL 0.7 mg/dL (0.2-1.0); CALCIUM 9.5 mg/dL (8.5-10.3); CREATININE 0.5 mg/dL (0.4-1.0); POTASSIUM 3.9 mmol/L (3.5-5.0); TOTAL PROTEIN 7.5 g/dL (6.7-8.2)
[2022-07-28] MEDS ORDERED: MECLIZINE 12.5 MG TABLET PO STA (11:41)
[2022-07-28 12:04] VITALS: BP 113/88
== END 2022-07-28 12:39 | disposition home or self-care (01) ==
LOC: ED 09:44
DX: R42 Dizziness and giddiness (principal); I10 Essential (primary) hypertension
CPT/HCPCS: 36415; 71045; 80053; 83690; 83735; 84443; 84484; 85025; 93005; 99284; A9270

== ENCOUNTER 2022-08-25 08:42 | Outpatient (CLI) | payer MEDICARE, OTHER ==
[2022-08-25 09:27] LABS: CHOL/HDL RATIO 2.4 (<4.4); CHOLESTEROL 199 mg/dL; HDL CHOLESTEROL 82 mg/dL; LDL CHOLESTEROL,CALCULATED 103 mg/dL; LDL/HDL RATIO 1.3 (<4.4); TRIGLYCERIDES 70 mg/dL; VLDL CHOLESTEROL 14 mg/dL
== END 2022-08-25 08:43 | disposition home or self-care (01) ==
LOC: LAB 08:42
PROVIDERS: ATTEND Internal Medicine
DX: I10 Essential (primary) hypertension (principal)
CPT/HCPCS: 36415; 80061; 83721

== ENCOUNTER 2023-11-10 08:00 | Outpatient (CLI) | payer MEDICARE, OTHER ==
--- NOTE | 2023-11-10 14:13 | XRAY Report ---
PROCEDURE: Ankle 3 View LT INDICATIONS: SPRAIN OF LEFT ANKLE TECHNIQUE: 3 views of the ankle were acquired. COMPARISON: None. FINDINGS: Bones: No fractures or dislocations. Ankle mortise is normally aligned. No suspicious bony lesions . Soft tissues: No tibiotalar joint effusion. Achilles tendon appears normal. IMPRESSION: No visualized acute fracture or dislocation. However, occult injury cannot be excluded. Recommend denzel rt interval imaging follow-up in 7-10 days as clinically indicated for additional evaluation. Reviewed by: Saige Mcduffie MD on 11/10/2023 2:11 PM PST Approved by: Saige Mcduffie MD on 11/10/2023 2:11 PM [facility] Station ID: [id number]
--- NOTE | 2023-11-10 14:17 | XRAY Report ---
PROCEDURE: Knee 3 View LT INDICATIONS: SPRAIN OF LEFT KNEE TECHNIQUE: 3 views of the knee(s) were acquired. COMPARISON: None. FINDINGS: Bones: No fractures or dislocations. No suspicious bony lesions. Moderate to severe tricompartmen mona arthritic change. Chondrocalcinosis is present. Periarticular osteophytes are noted without erosi ons. Soft tissues: Mild knee joint effusion. No suspicious soft tissue calcifications or masses. IMPRESSION: Moderate to severe tricompartmental arthritic change. Reviewed by: Saige Mcduffie MD on 11/10/2023 2:16 PM PST Approved by: Saige Mcduffie MD on 11/10/2023 2:16 PM PST Station ID: [id number]
== END 2023-11-10 23:59 | disposition home or self-care (01) ==
LOC: DI.S 08:00
PROVIDERS: ATTEND Physician Assistant
DX: S93.492A Sprain of other ligament of left ankle, initial encounter (principal); M17.12 Unilateral primary osteoarthritis, left knee

== ENCOUNTER 2023-11-17 09:20 | Outpatient (CLI) | payer MEDICARE, OTHER ==
[2023-11-17 09:32] LABS: BASOPHILS # (AUTO) 0.1 10^3/uL (0.0-0.1); BASOPHILS % (AUTO) 0.8 %; EOSINOPHILS # (AUTO) 0.2 10^3/uL (0.0-0.7); EOSINOPHILS % (AUTO) 3.6 %; HCT - HEMATOCRIT 43.3 % (37.0-47.0); HGB - HEMOGLOBIN 14.6 g/dL (12.0-16.0); LYMPHOCYTES # (AUTO) 1.5 10^3/uL (1.5-3.5); LYMPHOCYTES % (AUTO) 23.7 %; MEAN CORPUSCULAR HEMOGLOBIN 30.5 pg (27.0-31.0); MEAN CORPUSCULAR HGB CONC 33.7 g/dL (32.0-36.0); MEAN CORPUSCULAR VOLUME 90.4 fL (81.0-99.0); MEAN PLATELET VOLUME 8.9 fL (7.9-10.8); MONOCYTES # (AUTO) 0.7 10^3/uL (0.0-1.0); MONOCYTES % (AUTO) 11.6 %; NEUTROPHILS # (AUTO) 3.8 10^3/uL (1.5-6.6); PLT - PLATELET COUNT 263 10^3/uL (130-450); RED BLOOD COUNT 4.79 10^6/uL (4.20-5.40); RED CELL DISTRIBUTION WIDTH 11.9 % (12.0-15.0); WHITE BLOOD COUNT 6.4 x10^3/uL (4.8-10.8)
[2023-11-17 09:49] LABS: ALBUMIN 4.5 g/dL (3.2-5.5); ALBUMIN/GLOBULIN RATIO 1.7 (1.0-2.2); ALKALINE PHOSPHATASE 110 IU/L (42-121); ALT ALANINE AMINOTRANSFERASE 23 IU/L (10-60); AST ASPARTATE AMINOTRANSFERASE 24 IU/L (10-42); BILIRUBIN,TOTAL 0.6 mg/dL (0.2-1.0); BUN - BLOOD UREA NITROGEN 14 mg/dL (6-20); CALCIUM 9.9 mg/dL (8.5-10.3); CARBON DIOXIDE - CO2 27 mmol/L (21-32); CHLORIDE 100 mmol/L (101-111); CHOL/HDL RATIO 2.9 (<4.4); CHOLESTEROL 202 mg/dL; CREATININE 0.5 mg/dL (0.6-1.3); GFR - MDRD 123 (>89); GLUCOSE 110 mg/dL (74-104); HDL CHOLESTEROL 70 mg/dL; LDL CHOLESTEROL,CALCULATED 110 mg/dL; LDL/HDL RATIO 1.6 (<4.4); POTASSIUM 4.3 mmol/L (3.5-4.5); SODIUM 132 mmol/L (135-145); TOTAL PROTEIN 7.1 g/dL (6.4-8.9); TRIGLYCERIDES 109 mg/dL (48-352); VLDL CHOLESTEROL 22 mg/dL
[2023-11-17 10:02] LABS: THYROID STIMULATING HORMONE 2.85 uIU/mL (0.34-5.60)
== END 2023-11-17 09:21 | disposition home or self-care (01) ==
LOC: LAB 09:20
PROVIDERS: ATTEND Registered Nurse
DX: I10 Essential (primary) hypertension (principal)
CPT/HCPCS: 36415; 80053; 80061; 83721; 84443; 85025

== ENCOUNTER 2024-07-26 13:58 | Outpatient (CLI) | payer MEDICARE, OTHER ==
--- NOTE | 2024-07-27 08:28 | Mammography Report ---
BILATERAL DIGITAL SCREENING MAMMOGRAM 3D/2D: 07/26/2024 CLINICAL: Routine screening. Comparison is made to exam dated: 05/08/2021 mammogram - [facility]. There are scattered areas of fibroglandular density in both breasts (category b / 25%-50% glandular t issue). There are benign post operative findings in the right breast. No significant masses, calcifications, or other findings are seen in either breast. There has been no significant interval change. IMPRESSION: BENIGN There is no mammographic evidence of malignancy. A 1 year screening mammogram is recommended. Based on the Tyrer Cuzick model (a risk assessment model) the patient's lifetime risk is 4.0% and her 10 year risk is 2.4%. According to the ACR, ACS, and NCCN guidelines, an annual breast MRI exam [place] with mammogram is recommended if the patient's lifetime risk is 20% or greater. This exam was interpreted at Station ID: [id number]. NOTE: For mammograms, a report in lay terms will be sent to the patient. Approximately 15% of breast malignancies will not be visualized mammographically. In the management of a palpable breast mass, a negative mammogram must not discourage biopsy of a clinically suspicious lesion. Electronically Signed By: Bi choi/lizabeth:07/26/2024 16:32:38 letter sent: No_Letter ACR BI-RADS Category 2: Benign Finding(s) 3342F PARENCHYMAL PATTERN: (A) - The breast(s) demonstrate(s) scattered fibroglandular densities. BI-RADS CATEGORY: (2) - 2 RECOMMENDATION: (ANNUAL) - Recommend routine annual screening mammography. [id number] 1 year screening LATERALITY: (B)
== END 2024-07-26 13:59 | disposition home or self-care (01) ==
LOC: DI 13:58
PROVIDERS: ATTEND Registered Nurse
DX: Z12.31 Encounter for screening mammogram for malignant neoplasm of breast (principal); R92.323 Mammographic fibroglandular density, bilateral breasts

== ENCOUNTER 2024-07-26 14:00 | Outpatient (CLI) | payer MEDICARE, OTHER ==
--- NOTE | 2024-07-28 15:58 | DEXA Report ---
PROCEDURE: Dexa Spine and/or Hip INDICATIONS: POST MENOPAUSAL TECHNIQUE: Dual energy x-ray absorptiometry (DXA) was performed on a eucl3D System. Regions measur ed are the AP Spine, femoral neck, and if needed forearm. COMPARISON: 01/30/2021 FINDINGS: Lumbar Spine: Bone Mineral Density: 1.026 g/cm/cm,T score: -1.5. There has been no statistically significant chase e in bone mineral density since the prior study. (T score greater or equal to -1.0: NORMAL) (T score from -1.1 to -2.4: OSTEOPENIA) (T score less than or equal to -2.5 to: OSTEOPOROSIS) Impression: By WHO criteria, this patient has low bone density (osteopenia). No statistical interval change in bone mineral density of the lumbar spine. Patients with diagnosis of osteoporosis or osteopenia should have regular bone mineral density assess ment. For those eligible for Medicare, routine testing is allowed once every 2 years. Testing frequ ency can be increased for patients who have rapidly progressing disease or for those who are receivin g medical therapy to restore bone mass. Reviewed by: Larry Ortega MD on 07/28/2024 3:57 PM PDT Approved by: Larry Ortega MD on 07/28/2024 3:57 PM PDT Station ID: [id number]
== END 2024-07-26 14:01 | disposition home or self-care (01) ==
LOC: DI 14:00
PROVIDERS: ATTEND Registered Nurse
DX: Z78.0 Asymptomatic menopausal state (principal); M85.88 Other specified disorders of bone density and structure, other site